=== PATIENT | male | born 1950 ===

== ENCOUNTER 2018-05-16 13:28 | Inpatient (IN) | payer MEDICARE, OTHER ==
[2018-05-16] MEDS ORDERED: Ergocalciferol 50,000 Intl Units Cap PO SCH (17:45)
[2018-05-16] MEDS ORDERED: Patient's Own Med (Dorzolamide 2%/Timolol 0.5% [Cosopt 2%-0.5% Opht] 1 DROP) OU SCH (17:45)
--- NOTE | 2018-05-16 17:51 | CP.PCM.HP ---
<Flo Milan - Last Filed: 05/16/18 17:42> History of Present Illness - History of Present Illness History of Present Illness: 67 y/o M with a PMHx of Aortic Stenosis, HTN, glaucoma and BPH is being admitted to acute rehabilitation department for management and recovery from "S/P Aortic Valve Replacement and PFO Closure" that took place on 05/12/18. Pt is being transferred from [facility]. Pt reports feeling well but c/o of mild chest pain and upper back pain due to handling and transportation issues. Pt explains that chest pain is not as sever as before he had the surgery. Pt denies fever, chills, dizziness, SOB, palpitations, nausea, vomiting or peripheral edema. PMD: Liliana Shaw Medications as listed on EMR -PMHx: Aortic Stenosis, HTN, glaucoma and BPH -PSHx: Aortic Valve Replacement and PFO Closure" on 05/12/18. Appendectomy in 1973. -FHx: Mother with DM2 -SHx: Denies smoking, alcohol or rec drugs. Present on Admission - Present on Admission Any Indicators Present on Admission: No Review of Systems - Constitutional Constitutional: absent: Anorexia, Chills, Fever - EENT Nose/Mouth/Throat: absent: Sore Throat, Neck Pain, Neck Mass - Cardiovascular Cardiovascular: Chest Pain. absent: Diaphoresis - Respiratory Respiratory: absent: Cough, Dyspnea, Hemoptysis - Gastrointestinal Gastrointestinal: absent: Abdominal Pain, Constipation, Cramping, Diarrhea, Nausea, Vomiting - Genitourinary Genitourinary: absent: Dysuria, Flank Pain, Hematuria Past Patient History - Past Medical History & Family History Past Medical History?: Yes - Past Social History Smoking Status: Never Smoked Chewing Tobacco Use: No - CARDIAC Hx Hypertension: Yes - PULMONARY Hx Respiratory Disorders: No - NEUROLOGICAL Hx Neurological Disorder: No - HEENT Hx HEENT Problems: Yes (SEE COMMENT) Other/Comment: bilateral red eyes swollen states due to blood pressure medication changes states vision is unaffected states will follow up with primary jaime for a check up/FOLLOW UP 12/05/[address] GLASER - RENAL Hx Chronic Kidney Disease: No - ENDOCRINE/METABOLIC Hx Endocrine Disorders: No - HEMATOLOGICAL/ONCOLOGICAL Hx Blood Disorders: No - INTEGUMENTARY Hx Dermatological Problems: No - MUSCULOSKELETAL/RHEUMATOLOGICAL Hx Musculoskeletal Disorders: No Hx Falls: No - GASTROINTESTINAL Hx Gastrointestinal Disorders: Yes (SEE COMMENT) Other/Comment: Umbilical hernia surgery in 2017 - GENITOURINARY/GYNECOLOGICAL Hx Genitourinary Disorders: Yes (SEE COMMENT) Other/Comment: BPH - PSYCHIATRIC Hx Substance Use: No - SURGICAL HISTORY Hx Surgeries: Yes (SEE COMMENT) Other/Comment: Peritonitis 1980 complication; pt. states had surgery unspecified and states appendix removal no problems during surgery or waking - ANESTHESIA Hx Anesthesia: Yes Hx Anesthesia Reactions: No Hx Malignant Hyperthermia: No Meds Allergies/Adverse Reactions: Allergies Allergy/AdvReac Type Severity Reaction Status Date / Time No Known Allergies Allergy Verified 05/16/18 16:33 Physical Exam - Constitutional Appears: Well, No Acute Distress - Head Exam Head Exam: ATRAUMATIC, NORMAL INSPECTION - Eye Exam Eye Exam: EOMI, Normal appearance - ENT Exam ENT Exam: Mucous Membranes Moist - Neck Exam Neck exam: Positive for: Full Rom, Normal Inspection. Negative for: Meningismus - Respiratory Exam Respiratory Exam: NORMAL BREATHING PATTERN. absent: Rales, Rhonchi, Wheezes, Respiratory Distress - Cardiovascular Exam Cardiovascular Exam: REGULAR RHYTHM, +S1, +S2 - GI/Abdominal Exam GI & Abdominal Exam: Normal Bowel Sounds, Soft. absent: Diminished Bowel Sounds, Distended, Guarding, Tenderness - Extremities Exam Extremities exam: Positive for: normal inspection. Negative for: calf tenderness, joint swelling, pedal edema - Neurological Exam Neurological exam: Alert, Oriented x3 - Psychiatric Exam Psychiatric exam: Normal Affect, Normal Mood Assessment & Plan - Assessment and Plan (Free Text) Assessment: 67 y/o M with a PMHx of Aortic Stenosis, HTN, glaucoma and BPH is being admitted to acute rehabilitation department for management and recovery from S/P "Aortic Valve Replacement and PFO Closure" that took place on 05/12/18. PLAN: >Aortic Valve Stenosis --Stable, afebrile. --POD #4 --S/P Aortic Valve Replacement and PFO Closure --Oxycodone 5mg for severe pain, Tylenol for moderate and mild pain. --Physiotherapy consult ordered, Dr Jamil. >HTN/BPH --Home meds resumed (Doxazosin) >Glaucoma --Home meds resumed >Diet --Heart Healthy diet >DVT Prophylaxis --SCD's --Lovenox 40mg SC daily Case discussed with Sherrie Dorsey PGY-2 - Date & Time Date: 05/16/18 Time: 18:05 <Sherrie Garcia - Last Filed: 05/19/18 08:24> Results - Vital Signs Recent Vital Signs: Last Vital Signs Temp 98.4 F 05/19/18 07:49 Pulse 79 05/19/18 08:00 Resp 18 05/19/18 07:49 BP 129/64 05/19/18 08:00 Pulse Ox 97 05/19/18 07:49 - Labs Result Diagrams: 05/17/18 08:20 05/17/18 11:00 Labs: Laboratory Results - last 24 hr 05/18/18 09:07 Troponin I 0.2070 H* Attending/Attestation - Attestation I have personally seen and examined this patient.: Yes I have fully participated in the care of the patient.: Yes I have reviewed all pertinent clinical information: Yes Notes (Text): 05/19/18 08:23 agree with findings and plan as above
[2018-05-16] MEDS: Dorzolamide 2% Ophth Soln OU SCH (19:39)
[2018-05-17] MEDS: Pantoprazole 40 mg EC Tab PO SCH (08:38)
[2018-05-17] MEDS: Dorzolamide 2% Ophth Soln OU SCH ×2 (08:39→16:40)
[2018-05-17 09:12] LABS: HEMOGLOBIN 11.6 g/dL (12.0-18.0); MEAN CELL VOLUME 87.1 fl (80.0-94.0); MEAN CORPUSCULAR HEMOGLOBIN 29.6 pg (27.0-31.0); RBC 3.91 Mil/uL (4.40-5.90); RED CELL DISTRIBUTION WIDTH 13.4 % (11.5-14.5); WHITE BLOOD COUNT 6.2 K/uL (4.8-10.8)
[2018-05-17 09:26] LABS: INR 1.2; PROTHROMBIN TIME 13.3 Seconds (9.8-13.1)
[2018-05-17 09:29] LABS: PARTIAL THROMBOPLASTIN TIME 28.6 Seconds (25.6-37.1)
[2018-05-17 09:57] VITALS: BMI 28.2
[2018-05-17 11:42] LABS: ALB/GLOB RATIO 1.1 (1.0-2.1); ALBUMIN 3.1 g/dL (3.5-5.0); ALT/SGPT 41 U/L (21-72); AST/SGOT 31 U/L (17-59); BLOOD UREA NITROGEN 18 mg/dl (9-20); CALCIUM 8.9 mg/dL (8.4-10.2); GFR NON-AFRICAN AMERICAN > 60
[2018-05-17] MEDS: Enoxaparin 40 mg Syringe SC SCH (16:39)
--- NOTE | 2018-05-17 18:09 | CP.PCM.CON ---
History of Present Illness - History of Present Illness History of Present Illness: 67 year old irish patient admitted with general debility and deconditioning, with diagnosis of aortic stenosis, HTN, BPH, glaucoma.PFOwith R to L shunt , admitted for acute rehab Review of Systems - Musculoskeletal Musculoskeletal: Muscle Weakness Past Patient History - Past Medical History & Family History Past Medical History?: Yes - Past Social History Smoking Status: Never Smoked Chewing Tobacco Use: No - CARDIAC Hx Hypertension: Yes - PULMONARY Hx Respiratory Disorders: No - NEUROLOGICAL Hx Neurological Disorder: No - HEENT Hx HEENT Problems: Yes (SEE COMMENT) Other/Comment: bilateral red eyes swollen states due to blood pressure medication changes states vision is unaffected states will follow up with primary jaime for a check up/FOLLOW UP 12/05/[address] GLASER - RENAL Hx Chronic Kidney Disease: No - ENDOCRINE/METABOLIC Hx Endocrine Disorders: No - HEMATOLOGICAL/ONCOLOGICAL Hx Blood Disorders: No - INTEGUMENTARY Hx Dermatological Problems: No - MUSCULOSKELETAL/RHEUMATOLOGICAL Hx Musculoskeletal Disorders: No Hx Falls: No - GASTROINTESTINAL Hx Gastrointestinal Disorders: Yes (SEE COMMENT) Other/Comment: Umbilical hernia surgery in 2017 - GENITOURINARY/GYNECOLOGICAL Hx Genitourinary Disorders: Yes (SEE COMMENT) Other/Comment: BPH - PSYCHIATRIC Hx Substance Use: No - SURGICAL HISTORY Hx Surgeries: Yes (SEE COMMENT) Other/Comment: Peritonitis 1980 complication; pt. states had surgery unspecified and states appendix removal no problems during surgery or waking - ANESTHESIA Hx Anesthesia: Yes Hx Anesthesia Reactions: No Hx Malignant Hyperthermia: No Meds Allergies/Adverse Reactions: Allergies Allergy/AdvReac Type Severity Reaction Status Date / Time No Known Allergies Allergy Verified 05/16/18 16:33 - Medications Medications: Current Medications Acetaminophen (Tylenol 325mg Tab) 650 mg PO Q6 PRN PRN Reason: Pain, moderate (4-7) Last Admin: 05/17/18 17:18 Dose: 650 mg Acetaminophen (Tylenol 325mg Tab) 325 mg PO Q6 PRN PRN Reason: Pain, Mild (1-3) Acetaminophen (Tylenol 325mg Tab) 650 mg PO Q6 PRN PRN Reason: Fever >100.4 F Aspirin (Ecotrin) 81 mg PO DAILY [facility] Last Admin: 05/17/18 08:38 Dose: 81 mg Docusate Sodium (Colace) 100 mg PO BID [facility] Last Admin: 05/17/18 16:38 Dose: 100 mg Dorzolamide HCl (Trusopt) 1 drop OU BID [facility] Last Admin: 05/17/18 16:40 Dose: 1 drop Doxazosin Mesylate (Cardura) 8 mg PO HS [facility] Last Admin: 05/16/18 21:31 Dose: Not Given Enoxaparin Sodium (Lovenox) 40 mg SC DAILY [facility]; Protocol Last Admin: 05/17/18 16:39 Dose: 40 mg Ergocalciferol (Drisdol 50,000 Intl Units Cap) 1 cap PO QWK [facility] Metoprolol Tartrate (Lopressor) 12.5 mg PO Q12 [facility] Last Admin: 05/17/18 08:38 Dose: 12.5 mg Oxycodone HCl (Oxycodone Immediate Release Tab) 5 mg PO Q4 PRN PRN Reason: Pain, severe (8-10) Pantoprazole Sodium (Protonix Ec Tab) 40 mg PO DAILY [facility] Last Admin: 05/17/18 08:38 Dose: 40 mg Timolol Maleate (Timoptic 0.5% Oph Soln) 1 drop OU BID [facility] Last Admin: 05/17/18 16:40 Dose: 1 drop Physical Exam - Constitutional Appears: Well - Head Exam Head Exam: ATRAUMATIC, NORMAL INSPECTION, NORMOCEPHALIC - Eye Exam Eye Exam: EOMI, Normal appearance Pupil Exam: NORMAL ACCOMODATION, PERRL - ENT Exam ENT Exam: Mucous Membranes Moist, Normal Exam - Neck Exam Neck exam: Positive for: Normal Inspection - Respiratory Exam Respiratory Exam: NORMAL BREATHING PATTERN - Cardiovascular Exam Cardiovascular Exam: REGULAR RHYTHM - GI/Abdominal Exam GI & Abdominal Exam: Normal Bowel Sounds - Rectal Exam Rectal Exam: NORMAL INSPECTION - Exam External exam: NORMAL EXTERNAL EXAM - Extremities Exam Extremities exam: Positive for: normal inspection Additional comments: weakness of the extremities - Back Exam Back exam: NORMAL INSPECTION - Psychiatric Exam Psychiatric exam: Normal Mood - Skin Skin Exam: Dry, Normal Color Results - Vital Signs Recent Vital Signs: Last Vital Signs Temp 98.2 F 05/17/18 09:38 Pulse 78 05/17/18 09:38 Resp 19 05/17/18 09:38 BP 131/77 05/17/18 09:38 Pulse Ox 96 05/17/18 09:38 - Labs Result Diagrams: 05/17/18 08:20 05/17/18 11:00 Labs: Laboratory Results - last 24 hr 05/17/18 05/17/18 05/17/18 08:20 08:20 11:00 WBC 6.2 RBC 3.91 L Hgb 11.6 L Hct 34.1 L MCV 87.1 MCH 29.6 MCHC 34.0 RDW 13.4 Plt Count 168 PT 13.3 H INR 1.2 APTT 28.6 Sodium 136 Potassium 4.1 Chloride 97 L Carbon Dioxide 27 Anion Gap 16 BUN 18 Creatinine 1.1 Est GFR ( Amer) > 60 Est GFR (Non-Af Amer) > 60 Random Glucose 168 H Calcium 8.9 Total Bilirubin 1.0 AST 31 ALT 41 Alkaline Phosphatase 160 H D Total Protein 6.1 L Albumin 3.1 L Globulin 3.0 Albumin/Globulin Ratio 1.1 Assessment & Plan (1) FARIDA (acute kidney injury) Status: Acute (2) Dehydration Status: Acute (3) HTN (hypertension) Status: Acute Comment: General debility - Assessment and Plan (Free Text) Plan: Aortic stenosis, plan for physical, occupational therapy and rec therapy for range of motion, strengthening, transfers and gait training. To write for overall plan of care
--- NOTE | 2018-05-17 18:14 | PCM.OPOC ---
Physiatry Overall Plan of Care - Overall Plan of Care Estimated Length of Stay in Weeks: 2 Rehab Impairment: Mobility, Gait, Balance Etiologic Diagnosis: Other Rehab/Medical Prognosis: Fair - Anticipated Interventions Physical Therapy:: Yes Occupational Therapy:: Yes Recreational Therapy:: Yes - Therapy Goals Bed Mobility: Independent Ambulation: Supervision Functional Positional Changes:: Independent - Functional Outcomes Functional Outcomes: fair - Discharge Plan Identification of Barriers to Discharge: Cognition Discharge Destination: Home
--- NOTE | 2018-05-18 02:46 | CP.PCM.PCO ---
Assessment & Plan - Assessment and Plan (Free Text) Assessment: Pt is a 89 y/o male with hx of recent Aortic Valve replacement. Received call by RN stating patient was complaining of chest wall and left arm pain associated with numbness and tingling of left fingers. Approached pt at bedside. Pt was hemodynamically stable, appeared comfortable. He states that ever since the operation, he has had chest wall, left shoulder pain and hand numbness that is fully resolved with Tylenol. EKG completed - no ischemic changes on my read. Troponin 0.22 (Was 2.23 on 05/15). Pt re-assessed after receiving Tylenol, found sleeping comfortable. Serial troponins ordered to trend levels. Discussed case with Dr. Gill.
[2018-05-18] MEDS: Pantoprazole 40 mg EC Tab PO SCH (08:13)
[2018-05-18] MEDS: Enoxaparin 40 mg Syringe SC SCH (08:14)
[2018-05-18] MEDS: Dorzolamide 2% Ophth Soln OU SCH ×2 (08:19→17:00)
--- NOTE | 2018-05-18 09:52 | CP.PCM.PN ---
Subjective - Date & Time of Evaluation Date of Evaluation: 05/18/18 Time of Evaluation: 09:30 - Subjective Subjective: Patient seen and examined bedside . Still complains of left arm numbness since post op day 1 as well as chest discomfort especially around surgical scar Hemodynamically stable, afebrile. Participating with PT No acute issues overnight Objective - Vital Signs/Intake and Output Vital Signs (last 24 hours): Temp Pulse Resp BP Pulse Ox 98.2 F 80 20 130/80 98 05/18/18 07:39 05/18/18 08:12 05/18/18 07:39 05/18/18 08:12 05/18/18 07:39 - Medications Medications: Current Medications Acetaminophen (Tylenol 325mg Tab) 650 mg PO Q6 PRN PRN Reason: Pain, moderate (4-7) Last Admin: 05/18/18 06:00 Dose: 650 mg Acetaminophen (Tylenol 325mg Tab) 325 mg PO Q6 PRN PRN Reason: Pain, Mild (1-3) Acetaminophen (Tylenol 325mg Tab) 650 mg PO Q6 PRN PRN Reason: Fever >100.4 F Aspirin (Ecotrin) 81 mg PO DAILY [facility] Last Admin: 05/18/18 08:12 Dose: 81 mg Docusate Sodium (Colace) 100 mg PO BID [facility] Last Admin: 05/18/18 08:11 Dose: 100 mg Dorzolamide HCl (Trusopt) 1 drop OU BID [facility] Last Admin: 05/18/18 08:19 Dose: 1 drop Doxazosin Mesylate (Cardura) 8 mg PO HS [facility] Last Admin: 05/17/18 22:05 Dose: 8 mg Enoxaparin Sodium (Lovenox) 40 mg SC DAILY [facility]; Protocol Last Admin: 05/18/18 08:14 Dose: 40 mg Ergocalciferol (Drisdol 50,000 Intl Units Cap) 1 cap PO QWK [facility] Metoprolol Tartrate (Lopressor) 12.5 mg PO Q12 [facility] Last Admin: 05/18/18 08:12 Dose: 12.5 mg Oxycodone HCl (Oxycodone Immediate Release Tab) 5 mg PO Q4 PRN PRN Reason: Pain, severe (8-10) Pantoprazole Sodium (Protonix Ec Tab) 40 mg PO DAILY [facility] Last Admin: 02/18/19 08:13 Dose: 40 mg Timolol Maleate (Timoptic 0.5% Ophth Soln) 1 drop OU BID [facility] Last Admin: 05/18/18 08:14 Dose: 1 drop - Labs Labs: 05/17/18 08:20 05/17/18 11:00 PT 13.3 Seconds (9.8-13.1) H 05/17/18 08:20 INR 1.2 05/17/18 08:20 APTT 28.6 Seconds (25.6-37.1) 05/17/18 08:20 - Constitutional Appears: Non-toxic, No Acute Distress - Head Exam Head Exam: ATRAUMATIC, NORMAL INSPECTION, NORMOCEPHALIC - Eye Exam Eye Exam: EOMI, Normal appearance Pupil Exam: NORMAL ACCOMODATION - ENT Exam ENT Exam: Mucous Membranes Moist, Normal Exam - Respiratory Exam Respiratory Exam: Clear to Ausculation Bilateral, NORMAL BREATHING PATTERN. absent: Rales, Rhonchi, Wheezes - Cardiovascular Exam Cardiovascular Exam: REGULAR RHYTHM, RRR, +S1, +S2. absent: JVD - GI/Abdominal Exam GI & Abdominal Exam: Soft, Normal Bowel Sounds. absent: Distended, Guarding, Tenderness, Rebound - Rectal Exam Rectal Exam: Deferred - Extremities Exam Extremities Exam: Full ROM, Normal Capillary Refill, Normal Inspection. absent: Pedal Edema - Back Exam Back Exam: NORMAL INSPECTION - Neurological Exam Neurological Exam: Alert, Awake, CN II-XII Intact, Oriented x3 - Psychiatric Exam Psychiatric exam: Normal Affect - Skin Skin Exam: Dry, Warm Additional comments: mid chest surgical scar healing well Assessment and Plan - Assessment and Plan (Free Text) Assessment: 67 y/o M with a PMH of Aortic Stenosis, HTN, glaucoma and BPH underwent aortic valve replacement and PFO closure at [facility] 05/12/18 and now transferred to acute rehab for PT. At present doing well , hemodynamically stable, afebrile. Stil with numbness to LUE 1.s/p Aortic Valve replacement and PFO closure Stable, afebrile. Continue PT , pain management surgical incision healing well with LUE numbness since surgery 2.HTN controlled on Metoprolol 3.BPH on Doxazosin 4.Glaucoma on eye drops 5.DVT Prophylaxis SCD's Lovenox 40mg SC daily
--- NOTE | 2018-05-18 16:10 | CARD ---
APPROVED REPORT Date of service: 05/17/2018 EKG Measurement Heart [id number] <Conclusion> Normal sinus rhythm Nonspecific T wave abn Normal Electrocardiogram
[2018-05-19] MEDS: Pantoprazole 40 mg EC Tab PO SCH (08:00)
[2018-05-19] MEDS: Dorzolamide 2% Ophth Soln OU SCH ×2 (08:01→16:04)
[2018-05-19] MEDS: Enoxaparin 40 mg Syringe SC SCH (08:01)
--- NOTE | 2018-05-19 15:36 | CP.PCM.PN ---
Subjective - Date & Time of Evaluation Date of Evaluation: 05/19/18 Time of Evaluation: 13:10 - Subjective Subjective: patient complains of occasional left hand numbness Objective - Vital Signs/Intake and Output Vital Signs (last 24 hours): Temp Pulse Resp BP Pulse Ox 98.4 F 79 18 129/64 97 05/19/18 08:12 05/19/18 08:12 05/19/18 08:12 05/19/18 08:12 05/19/18 07:49 - Medications Medications: Current Medications Acetaminophen (Tylenol 325mg Tab) 650 mg PO Q6 PRN PRN Reason: Pain, moderate (4-7) Last Admin: 05/19/18 07:12 Dose: 650 mg Acetaminophen (Tylenol 325mg Tab) 325 mg PO Q6 PRN PRN Reason: Pain, Mild (1-3) Acetaminophen (Tylenol 325mg Tab) 650 mg PO Q6 PRN PRN Reason: Fever >100.4 F Aspirin (Ecotrin) 81 mg PO DAILY [facility] Last Admin: 05/19/18 08:00 Dose: 81 mg Docusate Sodium (Colace) 100 mg PO BID [facility] Last Admin: 05/19/18 08:00 Dose: 100 mg Dorzolamide HCl (Trusopt) 1 drop OU BID [facility] Last Admin: 05/19/18 08:01 Dose: 1 drop Doxazosin Mesylate (Cardura) 8 mg PO HS [facility] Last Admin: 05/18/18 22:06 Dose: 8 mg Enoxaparin Sodium (Lovenox) 40 mg SC DAILY [facility]; Protocol Last Admin: 05/19/18 08:01 Dose: 40 mg Ergocalciferol (Drisdol 50,000 Intl Units Cap) 1 cap PO QWK [facility] Metoprolol Tartrate (Lopressor) 12.5 mg PO Q12 [facility] Last Admin: 05/19/18 08:00 Dose: 12.5 mg Oxycodone HCl (Oxycodone Immediate Release Tab) 5 mg PO Q4 PRN PRN Reason: Pain, severe (8-10) Pantoprazole Sodium (Protonix Ec Tab) 40 mg PO DAILY [facility] Last Admin: 05/19/18 08:00 Dose: 40 mg Timolol Maleate (Timoptic 0.5% Ophth Soln) 1 drop OU BID [facility] Last Admin: 05/19/18 08:01 Dose: 1 drop - Labs Labs: 05/17/18 08:20 05/17/18 11:00 PT 13.3 Seconds (9.8-13.1) H 05/17/18 08:20 INR 1.2 05/17/18 08:20 APTT 28.6 Seconds (25.6-37.1) 05/17/18 08:20 - Constitutional Appears: Well - Head Exam Head Exam: ATRAUMATIC, NORMAL INSPECTION, NORMOCEPHALIC - Eye Exam Eye Exam: EOMI, Normal appearance, PERRL Pupil Exam: NORMAL ACCOMODATION - ENT Exam ENT Exam: Mucous Membranes Moist, Normal Exam - Neck Exam Neck Exam: Full ROM, Normal Inspection - Respiratory Exam Respiratory Exam: Clear to Ausculation Bilateral, NORMAL BREATHING PATTERN - Cardiovascular Exam Cardiovascular Exam: REGULAR RHYTHM - GI/Abdominal Exam GI & Abdominal Exam: Soft, Normal Bowel Sounds - Rectal Exam Rectal Exam: NORMAL INSPECTION - Exam External exam: NORMAL EXTERNAL EXAM - Extremities Exam Extremities Exam: Full ROM, Normal Capillary Refill, Normal Inspection - Back Exam Back Exam: NORMAL INSPECTION - Neurological Exam Neurological Exam: Alert, Awake Neuro motor strength exam: Left Upper Extremity: 3, Right Upper Extremity: 3, Left Lower Extremity: 3, Right Lower Extremity: 3 - Psychiatric Exam Psychiatric exam: Normal Affect, Normal Mood - Skin Skin Exam: Dry, Intact Assessment and Plan (1) FARIDA (acute kidney injury) Status: Acute (2) Dehydration Status: Acute (3) HTN (hypertension) Status: Acute - Assessment and Plan (Free Text) Plan: CVa plan for physical, occupational, rec therapy neurology consult for left hand numbness
--- NOTE | 2018-05-19 15:42 | CP.PCM.PN ---
Subjective - Date & Time of Evaluation Date of Evaluation: 05/17/18 Time of Evaluation: 12:00 - Subjective Subjective: no acute complaints at present Objective - Vital Signs/Intake and Output Vital Signs (last 24 hours): Temp Pulse Resp BP Pulse Ox 98.4 F 79 18 129/64 97 05/19/18 08:12 05/19/18 08:12 05/19/18 08:12 05/19/18 08:12 05/19/18 07:49 - Medications Medications: Current Medications Acetaminophen (Tylenol 325mg Tab) 650 mg PO Q6 PRN PRN Reason: Pain, moderate (4-7) Last Admin: 05/19/18 07:12 Dose: 650 mg Acetaminophen (Tylenol 325mg Tab) 325 mg PO Q6 PRN PRN Reason: Pain, Mild (1-3) Acetaminophen (Tylenol 325mg Tab) 650 mg PO Q6 PRN PRN Reason: Fever >100.4 F Aspirin (Ecotrin) 81 mg PO DAILY [facility] Last Admin: 05/19/18 08:00 Dose: 81 mg Docusate Sodium (Colace) 100 mg PO BID [facility] Last Admin: 05/19/18 08:00 Dose: 100 mg Dorzolamide HCl (Trusopt) 1 drop OU BID [facility] Last Admin: 05/19/18 08:01 Dose: 1 drop Doxazosin Mesylate (Cardura) 8 mg PO HS [facility] Last Admin: 05/18/18 22:06 Dose: 8 mg Enoxaparin Sodium (Lovenox) 40 mg SC DAILY [facility]; Protocol Last Admin: 05/19/18 08:01 Dose: 40 mg Ergocalciferol (Drisdol 50,000 Intl Units Cap) 1 cap PO QWK [facility] Metoprolol Tartrate (Lopressor) 12.5 mg PO Q12 [facility] Last Admin: 05/19/18 08:00 Dose: 12.5 mg Oxycodone HCl (Oxycodone Immediate Release Tab) 5 mg PO Q4 PRN PRN Reason: Pain, severe (8-10) Pantoprazole Sodium (Protonix Ec Tab) 40 mg PO DAILY [facility] Last Admin: 05/19/18 08:00 Dose: 40 mg Timolol Maleate (Timoptic 0.5% Ophth Soln) 1 drop OU BID [facility] Last Admin: 05/19/18 08:01 Dose: 1 drop - Labs Labs: 02/17/19 08:20 05/17/18 11:00 PT 13.3 Seconds (9.8-13.1) H 05/17/18 08:20 INR 1.2 05/17/18 08:20 APTT 28.6 Seconds (25.6-37.1) 05/17/18 08:20 - Constitutional Appears: Well - Head Exam Head Exam: ATRAUMATIC, NORMAL INSPECTION, NORMOCEPHALIC - Eye Exam Eye Exam: EOMI, Normal appearance, PERRL Pupil Exam: NORMAL ACCOMODATION - ENT Exam ENT Exam: Mucous Membranes Moist, Normal Exam - Neck Exam Neck Exam: Full ROM, Normal Inspection - Respiratory Exam Respiratory Exam: Clear to Ausculation Bilateral, NORMAL BREATHING PATTERN - Cardiovascular Exam Cardiovascular Exam: REGULAR RHYTHM - GI/Abdominal Exam GI & Abdominal Exam: Soft, Normal Bowel Sounds - Rectal Exam Rectal Exam: NORMAL INSPECTION - Exam External exam: NORMAL EXTERNAL EXAM - Extremities Exam Extremities Exam: Full ROM, Normal Capillary Refill, Normal Inspection - Back Exam Back Exam: NORMAL INSPECTION - Neurological Exam Neurological Exam: Alert, Awake Neuro motor strength exam: Left Upper Extremity: 3, Right Upper Extremity: 3, Left Lower Extremity: 3, Right Lower Extremity: 3 - Psychiatric Exam Psychiatric exam: Normal Affect, Normal Mood - Skin Skin Exam: Dry, Intact Assessment and Plan (1) FARIDA (acute kidney injury) Status: Acute (2) Dehydration Status: Acute (3) HTN (hypertension) Status: Acute - Assessment and Plan (Free Text) Assessment: CVa plan for range of motion, strengthening transfers and gait training
[2018-05-20] MEDS: oxyCODONE 5 mg Immediate Release Tab PO PRN ×3 (02:29→14:51)
[2018-05-20 07:13] LABS: MEAN CELL VOLUME 86.9 fl (80.0-94.0); MEAN CORPUSCULAR HGB CONC 33.4 g/dL (33.0-37.0); RBC 3.78 Mil/uL (4.40-5.90); RED CELL DISTRIBUTION WIDTH 13.4 % (11.5-14.5)
[2018-05-20 07:27] LABS: BLOOD UREA NITROGEN 17 mg/dl (9-20); CALCIUM 8.9 mg/dL (8.4-10.2); GFR NON-AFRICAN AMERICAN > 60
[2018-05-20] MEDS: Enoxaparin 40 mg Syringe SC SCH (08:09)
[2018-05-20] MEDS: Dorzolamide 2% Ophth Soln OU SCH ×2 (08:11→16:42)
[2018-05-20] MEDS: Pantoprazole 40 mg EC Tab PO SCH (08:11)
[2018-05-20] MEDS ORDERED: Ergocalciferol 50,000 Intl Units Cap PO SCH (09:00)
--- NOTE | 2018-05-20 11:36 | PCM.PSYTMC ---
Acute Rehab Team Conference - - Vital Signs: Vital Signs (Last 8 Hours): Vital Signs 05/20/18 05/20/18 05/20/18 07:22 08:10 08:48 Temperature 98.2 F 98.2 F Pulse Rate 79 79 79 Respiratory 18 18 Rate Blood Pressure 123/61 123/61 123/61 O2 Sat by Pulse 98 Oximetry Pain: 0 - Precautions: Precautions: Fall Prevention, Cardiac/Pulmonary - Medications/Other Issues: Comment: Lovenox 40mg, Protonix - Consults: Comment: post D/C. May at 10:00 am - Skin: Incision Site: mid incision to chest,potato loader post drain sites Incision: Sutures Intact Incision Line Treatment: post drain sites with sutures, with some scabs, LOPEZ laterally to abdomen - Toileting: Toileting: Supervision - Bladder Management: Bladder Pattern: Normal Voiding Method: Toilet Bladder Management: Supervision - Transfers: Transfers: Supervision - ADL's: ADL's: Supervision - Pain Management: Other Intervention:: with PRN medications,effective - Patient/Family Teaching: Other Intervention:: cardiac precaution, diet, fall precautions - Goals/Time Frame: Comment: " want to go back working with less to no pain" - Provider: Registered Nurse:: Fatimah Hull Physical Therapy - Bed Mobility Bed Mobility: Supervision, Verbal Cues - Transfers Wheelchair to Mat: Supervision, Verbal Cues Sit to Stand: Supervision, Verbal Cues - Ambulation Level of Assistance: Supervision, Verbal Cues Distance (ft.): 250 Orthoses: n/a Comment: 250 feet with SPC (RUE) with supervision with reciprocal pattern. - VCs for upright visual gaze as patient has tendency for downward gaze. - repeated trials with emphasis on slowly increasing speed as well as increasing tolerance to activity. [ End ] - Stair Negotiation Stairs: Level of Assistance: Not Tested - Standing Balance Static Stand: Supervision - Pain Pain (assessed during therapy session): 4 Comment: -anterior chest pain, L shoulder (posteriorly biased). -patient's primary complaint is of L hand numbness which he reports his new and was not present prior to surgery - Insight/Carryover Insight/Carryover: Good - Patient/Family Education Comment: sternal precautions, safety, mobility, use of DME, endurance, breathing patterns, functional training - Assessment/Plan Assessment: Patient continues to present with flat affect. Patient remains concerned regarding L hand numbness and altered sensation which he reports does not change with pain medication and was not present prior to procedure; RN Dayanna notified of patient's complaints. Patient continues to make good progress in therapy with fair to good carry-over with sternal precautions. Patient ambulates with SPC with rest breaks prn. Pt will benefit from skilled PT addressing endurance, safety, mobility, and continued education. - Goals Timeframe: 7 days Goals: -perform bed/mat mobility with mod I with adherence to sternal precautions. -perform transfers with SPC with DS with adherence to sternal precautions. -ambulate 500 feet with SPC with DS. -negotiate 1 flight of steps with single rail and SPC with CS - Provider Physical Therapist:: Desire Bunch License Number:: [id number] Occupational Therapy - Arousal/Attention/Orientation Level of Consciousness: Awake, Alert Patient Orientation: Person, Place, Time - ADL/IADL Self Feeding: Independent, Set-up Help Grooming: Independent, Set-up Help Bathing-Upper Ext: Supervision Bathing-Lower Ext: Supervision Dressing-Upper Ext: Independent Dressing-Lower Ext: Supervision, Verbal Cues, Contact Guard Comment: verbal cues to maintain sternal precautions - Sitting Balance Static Sitting: Independent without upper extremity support Dynamic Sitting: Reaches across midline, Reaches out of base of support - Transfers Wheelchair to Bed Transfers: Supervision, Verbal Cues Toilet Transfers: Supervision, Verbal Cues Comment: patient has walk in shower; able to complete simulated shower transfer with supervision - Wheelchair Management Level of Assistance: Supervision, Verbal Cues Distance (ft.): 150 - Upper Extremity Status Right Upper Extremity Comment: AROM WFLs Left Upper Extremity Comment: AROM WFLs. c/o intermittent L hand numbness. c/o pain from L scapula radiaitng down to hand. sensation is intact. stereognosis is intact - Pain Pain (assessed during therapy session): 5 Comment: pain at incision site - Insight/Carryover Insight/Carryover: Good - Patient/Family Education Comment: STERNAL PRECAUTIONS/CARDIAC PREACAUTIONS, ENERGRY CONSERVATION/FALL PREVENTION, THERAPY GOAL, PLAN OF CARE, THERAPY SCHEDULE - Assessment/Plan Assessment: patient is a 67 yo male presenting to [facility] s/p s/p AVR and PFO closure. PRECAUTIONS:FALLS/SAFETY,STERNAL PRECAUTIONS, CARDIAC PRECAUTIONS, INCISION SITE CARE. Patient presents with pain at surgical site, impaired dynamic standing balance , impaired activity tolerance, generazlzied weakness, impaired knowledge of adaptive, compensatory, techs and impaired knowledge of sternal/cardiac precautions. patient with c/o L hand numbnes; made aware, neuro consult ordered. Due to these aforementioend defecits skilled OT services are highly warranted 5-6x/week to maximize pt's functional I prior to D/C. - Goals Timeframe: 2 weeks Comment: MOD I TRANSFERS. MOD I LIGHT IADLS/HOMEMAKING. MOD I TOILETING. MOD I UB/LB ADLS. MOD I TOILETING - Provider Occupational Therapist:: Jemima Johnson License Number: [id number] Nutrition - Current Diet Current Diet/Supplement/Feedings: Heart healthy decaf - Appetite Percent Meal Consumed: 75-100% - Assessment/Goals/Time Frame Assessments/Goals/Time Frame: Pt at high nutritional risk. goals: 1. Pt to consume 75-100% of meals. 2. Blood glucoses to be between 70-180 mg/dl. Follow-up due on 05/23/2018 - Provider Provider: Humaira Solis Case Management - Psychosocial Assessment Support Systems: Alicja Chairez (spouse) - [phone] Psychological Interventions/Needs: Patient is AAO x3 and able to verbalize needs. Discharge Concerns: Patient lives with his in a senior citizen building in a fourth floor apartment and has elevator access. feels that their toilet is very low, unlike that in his room at rehab, and would require pt to exert a lot of force to get up from. Patient/Family Meeting: CM met with patient and rehab team. Intervention/Goal/Outcome: 1. Goal: Intermittent Supervision 2. Plan: home with VNS 3. DME needs 4. f/u appts 5. emotional support - Discharge Plan Discharge Plan: Home with services Home Services: [facility]? - Provider Provider: Shirley Montoya License Number: [id number] Rehabilitation Plan - Treatment Plan Treatment Plan: Physical Therapy, Occupational Therapy, Dietary, Patient/Family Education - Recommendation Recommendation: Physical Therapy, Occupational Therapy, Dietary, Patient/Family Education - Discharge Plan Discharge to: Home (Dc 26)
--- NOTE | 2018-05-20 11:44 | CP.PCM.PN ---
Subjective - Date & Time of Evaluation Date of Evaluation: 05/20/18 Time of Evaluation: 11:44 - Subjective Subjective: DONG WELL NO COMPLAINTS PARTICIPATING WELL WITH PT HD STABLE NAD Objective - Vital Signs/Intake and Output Vital Signs (last 24 hours): Temp Pulse Resp BP Pulse Ox 98.2 F 79 18 123/61 98 05/20/18 08:48 05/20/18 08:48 05/20/18 08:48 05/20/18 08:48 05/20/18 07:22 Vitals Reviewed GEN: WDWN, alert, cooperative HEENT: NCAT, PERRL, EOMI HEART: RRR, +S1S2, NO MRG LUNG: CTAB, NO WRR ABD: soft, NT, ND, No HSM, No masses EXT: normal pedal pulses NEURO: awake, alert SKIN: warm, dry PSYCH: normal mood, normal affect - Medications Medications: Current Medications Acetaminophen (Tylenol 325mg Tab) 650 mg PO Q6 PRN PRN Reason: Pain, moderate (4-7) Last Admin: 05/19/18 21:15 Dose: 650 mg Acetaminophen (Tylenol 325mg Tab) 325 mg PO Q6 PRN PRN Reason: Pain, Mild (1-3) Acetaminophen (Tylenol 325mg Tab) 650 mg PO Q6 PRN PRN Reason: Fever >100.4 F Aspirin (Ecotrin) 81 mg PO DAILY [facility] Last Admin: 05/20/18 08:09 Dose: 81 mg Docusate Sodium (Colace) 100 mg PO BID [facility] Last Admin: 05/20/18 08:10 Dose: 100 mg Dorzolamide HCl (Trusopt) 1 drop OU BID [facility]PL[facility] BY [facility] Last Admin: 05/20/18 08:11 Dose: 1 drop Doxazosin Mesylate (Cardura) 8 mg PO HS [facility]PLACED BY [facility] Last Admin: 05/19/18 21:06 Dose: 8 mg Enoxaparin Sodium (Lovenox) 40 mg SC DAILY [facility]PL[facility] BY [facility]; Protocol Last Admin: 05/20/18 08:09 Dose: 40 mg Ergocalciferol (Drisdol 50,000 Intl Units Cap) 1 cap PO Q7D REPLACED BY [facility] Last Admin: 05/20/18 08:08 Dose: 1 cap Metoprolol Tartrate (Lopressor) 12.5 mg PO Q12 [facility]PLAC[facility] BY [facility] Last Admin: 05/20/18 08:10 Dose: 12.5 mg Oxycodone HCl (Oxycodone Immediate Release Tab) 5 mg PO Q4 PRN PRN Reason: Pain, severe (8-10) Last Admin: 05/20/18 10:01 Dose: 5 mg Pantoprazole Sodium (Protonix Ec Tab) 40 mg PO DAILY [facility]PL[facility] Last Admin: 05/20/18 08:11 Dose: 40 mg Timolol Maleate (Timoptic 0.5% Ophth Soln) 1 drop OU BID [facility]PLACED BY [facility] Last Admin: 05/20/18 08:09 Dose: 1 drop - Labs Labs: 05/20/18 07:07 05/20/18 07:07 PT 13.3 Seconds (9.8-13.1) H 05/17/18 08:20 INR 1.2 05/17/18 08:20 APTT 28.6 Seconds (25.6-37.1) 05/17/18 08:20 Assessment and Plan - Assessment and Plan (Free Text) Plan: 67 y/o M with a PMH of Aortic Stenosis, HTN, glaucoma and BPH underwent aortic valve replacement and PFO closure at [facility] 05/12/18 and now transferred to acute rehab for PT. 1.s/p Aortic Valve replacement and PFO closure Stable, afebrile. Continue PT , pain management surgical incision healing well with LUE numbness since surgery 2.HTN controlled on Metoprolol 3.BPH on Doxazosin 4.Glaucoma on eye drops 5.DVT Prophylaxis SCD's Lovenox 40mg SC daily
--- NOTE | 2018-05-20 16:37 | CP.PCM.PN ---
Subjective - Date & Time of Evaluation Date of Evaluation: 05/20/18 Time of Evaluation: 12:00 - Subjective Subjective: patient still with occasional complaints of left hand tingling at times, no other complaints Objective - Vital Signs/Intake and Output Vital Signs (last 24 hours): Temp Pulse Resp BP Pulse Ox 98.2 F 79 18 123/61 98 05/20/18 08:48 05/20/18 08:48 05/20/18 08:48 05/20/18 08:48 05/20/18 07:22 - Medications Medications: Current Medications Acetaminophen (Tylenol 325mg Tab) 650 mg PO Q6 PRN PRN Reason: Pain, moderate (4-7) Last Admin: 05/19/18 21:15 Dose: 650 mg Acetaminophen (Tylenol 325mg Tab) 325 mg PO Q6 PRN PRN Reason: Pain, Mild (1-3) Acetaminophen (Tylenol 325mg Tab) 650 mg PO Q6 PRN PRN Reason: Fever >100.4 F Aspirin (Ecotrin) 81 mg PO DAILY [facility] Last Admin: 05/20/18 08:09 Dose: 81 mg Docusate Sodium (Colace) 100 mg PO BID [facility] Last Admin: 05/20/18 08:10 Dose: 100 mg Dorzolamide HCl (Trusopt) 1 drop OU BID [facility] Last Admin: 05/20/18 08:11 Dose: 1 drop Doxazosin Mesylate (Cardura) 8 mg PO HS [facility] Last Admin: 05/19/18 21:06 Dose: 8 mg Enoxaparin Sodium (Lovenox) 40 mg SC DAILY [facility]; Protocol Last Admin: 05/20/18 08:09 Dose: 40 mg Ergocalciferol (Drisdol 50,000 Intl Units Cap) 1 cap PO Q7D [facility] Last Admin: 05/20/18 08:08 Dose: 1 cap Metoprolol Tartrate (Lopressor) 12.5 mg PO Q12 [facility] Last Admin: 05/20/18 08:10 Dose: 12.5 mg Oxycodone HCl (Oxycodone Immediate Release Tab) 5 mg PO Q4 PRN PRN Reason: Pain, severe (8-10) Last Admin: 05/20/18 14:51 Dose: 5 mg Pantoprazole Sodium (Protonix Ec Tab) 40 mg PO DAILY [facility] Last Admin: 05/20/18 08:11 Dose: 40 mg Timolol Maleate (Timoptic 0.5% Ophth Soln) 1 drop OU BID [facility] Last Admin: 05/20/18 08:09 Dose: 1 drop - Labs Labs: 05/20/18 07:07 05/20/18 07:07 PT 13.3 Seconds (9.8-13.1) H 05/17/18 08:20 INR 1.2 05/17/18 08:20 APTT 28.6 Seconds (25.6-37.1) 05/17/18 08:20 - Constitutional Appears: Well - Head Exam Head Exam: ATRAUMATIC, NORMAL INSPECTION, NORMOCEPHALIC - Eye Exam Eye Exam: EOMI, Normal appearance, PERRL Pupil Exam: NORMAL ACCOMODATION, PERRL - ENT Exam ENT Exam: Mucous Membranes Moist, Normal Exam - Neck Exam Neck Exam: Full ROM, Normal Inspection - Respiratory Exam Respiratory Exam: Clear to Ausculation Bilateral, NORMAL BREATHING PATTERN - Cardiovascular Exam Cardiovascular Exam: REGULAR RHYTHM - GI/Abdominal Exam GI & Abdominal Exam: Soft, Normal Bowel Sounds - Rectal Exam Rectal Exam: NORMAL INSPECTION - Exam External exam: NORMAL EXTERNAL EXAM - Extremities Exam Extremities Exam: Full ROM, Normal Capillary Refill, Normal Inspection - Back Exam Back Exam: NORMAL INSPECTION - Neurological Exam Neurological Exam: Alert, Awake Neuro motor strength exam: Left Upper Extremity: 3, Right Upper Extremity: 3, Left Lower Extremity: 3, Right Lower Extremity: 3 - Psychiatric Exam Psychiatric exam: Normal Affect, Normal Mood - Skin Skin Exam: Dry, Normal Color, Warm Assessment and Plan (1) FARIDA (acute kidney injury) Status: Acute (2) Dehydration Status: Acute (3) HTN (hypertension) Status: Acute - Assessment and Plan (Free Text) Assessment: aortic stenosis, status post surgery, deconditioning, Plan for physical, occupational therapy Had team conference Dc date for 05/26 present and agreeable. Trial of left hand splint?, neurology consult pending
[2018-05-21] MEDS: oxyCODONE 5 mg Immediate Release Tab PO PRN (08:11)
[2018-05-21] MEDS: Enoxaparin 40 mg Syringe SC SCH (08:53)
[2018-05-21] MEDS: Pantoprazole 40 mg EC Tab PO SCH (08:54)
[2018-05-21] MEDS: Dorzolamide 2% Ophth Soln OU SCH ×2 (08:56→16:54)
--- NOTE | 2018-05-21 13:23 | CP.PCM.CON ---
History of Present Illness - History of Present Illness History of Present Illness: Neurology consult called by Dr. Sherrie Garcia. 67 yr old male with pmh of aortic stenosis, and multiple medical problems who now has left hand weakness and numbness for several days, since . Plan: 1. Mri Brain without contrast Consult dictated. Past Patient History - Past Medical History & Family History Past Medical History?: Yes - Past Social History Smoking Status: Never Smoked Chewing Tobacco Use: No - CARDIAC Hx Hypertension: Yes - PULMONARY Hx Respiratory Disorders: No - NEUROLOGICAL Hx Neurological Disorder: No - HEENT Hx HEENT Problems: Yes (SEE COMMENT) Other/Comment: bilateral red eyes swollen states due to blood pressure medication changes states vision is unaffected states will follow up with primary jaime for a check up/FOLLOW UP 12/05/[address] GLASER - RENAL Hx Chronic Kidney Disease: No - ENDOCRINE/METABOLIC Hx Endocrine Disorders: No - HEMATOLOGICAL/ONCOLOGICAL Hx Blood Disorders: No - INTEGUMENTARY Hx Dermatological Problems: No - MUSCULOSKELETAL/RHEUMATOLOGICAL Hx Musculoskeletal Disorders: No Hx Falls: No - GASTROINTESTINAL Hx Gastrointestinal Disorders: Yes (SEE COMMENT) Other/Comment: Umbilical hernia surgery in 2017 - GENITOURINARY/GYNECOLOGICAL Hx Genitourinary Disorders: Yes (SEE COMMENT) Other/Comment: BPH - PSYCHIATRIC Hx Substance Use: No - SURGICAL HISTORY Hx Surgeries: Yes (SEE COMMENT) Other/Comment: Peritonitis 1980 complication; pt. states had surgery unspecified and states appendix removal no problems during surgery or waking - ANESTHESIA Hx Anesthesia: Yes Hx Anesthesia Reactions: No Hx Malignant Hyperthermia: No Meds Allergies/Adverse Reactions: Allergies Allergy/AdvReac Type Severity Reaction Status Date / Time No Known Allergies Allergy Verified 05/16/18 16:33 - Medications Medications: Current Medications Acetaminophen (Tylenol 325mg Tab) 650 mg PO Q6 PRN PRN Reason: Pain, moderate (4-7) Last Admin: 05/19/18 21:15 Dose: 650 mg Acetaminophen (Tylenol 325mg Tab) 325 mg PO Q6 PRN PRN Reason: Pain, Mild (1-3) Acetaminophen (Tylenol 325mg Tab) 650 mg PO Q6 PRN PRN Reason: Fever >100.4 F Aspirin (Ecotrin) 81 mg PO DAILY [facility] Last Admin: 05/21/18 08:54 Dose: 81 mg Docusate Sodium (Colace) 100 mg PO BID [facility] Last Admin: 05/21/18 08:54 Dose: 100 mg Dorzolamide HCl (Trusopt) 1 drop OU BID [facility] Last Admin: 05/21/18 08:56 Dose: 1 drop Doxazosin Mesylate (Cardura) 8 mg PO HS [facility] Last Admin: 05/20/18 21:18 Dose: 8 mg Enoxaparin Sodium (Lovenox) 40 mg SC DAILY [facility]; Protocol Last Admin: 05/21/18 08:53 Dose: 40 mg Ergocalciferol (Drisdol 50,000 Intl Units Cap) 1 cap PO Q7D [facility] Last Admin: 05/20/18 08:08 Dose: 1 cap Metoprolol Tartrate (Lopressor) 12.5 mg PO Q12 [facility] Last Admin: 05/21/18 08:54 Dose: 12.5 mg Oxycodone HCl (Oxycodone Immediate Release Tab) 5 mg PO Q4 PRN PRN Reason: Pain, severe (8-10) Last Admin: 05/21/18 08:11 Dose: 5 mg Pantoprazole Sodium (Protonix Ec Tab) 40 mg PO DAILY [facility] Last Admin: 05/21/18 08:54 Dose: 40 mg Timolol Maleate (Timoptic 0.5% Ophth Soln) 1 drop OU BID [facility] Last Admin: 05/21/18 08:53 Dose: 1 drop Results - Vital Signs Recent Vital Signs: Last Vital Signs Temp 99.1 F 05/21/18 10:00 Pulse 79 05/21/18 10:00 Resp 20 05/21/18 10:00 BP 133/59 L 05/21/18 10:00 Pulse Ox 97 05/21/18 10:00 - Labs Result Diagrams: 05/20/18 07:07 05/20/18 07:07
[2018-05-22] MEDS: Enoxaparin 40 mg Syringe SC SCH (08:13)
[2018-05-22] MEDS: Bacitracin OINT 15GM TOP SCH ×2 (08:15→16:35)
[2018-05-22] MEDS: Pantoprazole 40 mg EC Tab PO SCH (08:18)
[2018-05-22] MEDS: Dorzolamide 2% Ophth Soln OU SCH ×2 (08:19→16:36)
--- NOTE | 2018-05-22 09:19 | CP.PCM.PN ---
Subjective - Date & Time of Evaluation Date of Evaluation: 05/22/18 Time of Evaluation: 09:17 - Subjective Subjective: participating well with pt cont to have mild upper extremity neuro consult appreciated brain mri hd stable nad Objective - Vital Signs/Intake and Output Vital Signs (last 24 hours): Temp Pulse Resp BP Pulse Ox 98 F 79 20 113/60 98 05/22/18 08:07 05/22/18 08:13 05/22/18 08:07 05/22/18 08:13 05/22/18 08:07 Intake and Output: Vitals Reviewed GEN: WDWN, alert, cooperative HEENT: NCAT, PERRL, EOMI HEART: RRR, +S1S2, NO MRG LUNG: CTAB, NO WRR ABD: soft, NT, ND, No HSM, No masses EXT: normal pedal pulses NEURO: awake, alert SKIN: warm, dry PSYCH: normal mood, normal affect - Medications Medications: Current Medications Acetaminophen (Tylenol 325mg Tab) 650 mg PO Q6 PRN PRN Reason: Pain, moderate (4-7) Last Admin: 05/21/18 19:30 Dose: 650 mg Acetaminophen (Tylenol 325mg Tab) 325 mg PO Q6 PRN PRN Reason: Pain, Mild (1-3) Acetaminophen (Tylenol 325mg Tab) 650 mg PO Q6 PRN PRN Reason: Fever >100.4 F Aspirin (Ecotrin) 81 mg PO DAILY [facility] Last Admin: 05/22/18 08:14 Dose: 81 mg Bacitracin (Bacitracin Oint) 1 applic TOP BID [facility] Last Admin: 05/22/18 08:15 Dose: 1 applic Docusate Sodium (Colace) 100 mg PO BID [facility] Last Admin: 05/22/18 08:15 Dose: 100 mg Dorzolamide HCl (Trusopt) 1 drop OU BID [facility] Last Admin: 05/22/18 08:19 Dose: 1 drop Doxazosin Mesylate (Cardura) 8 mg PO HS [facility] Last Admin: 05/21/18 21:32 Dose: Not Given Enoxaparin Sodium (Lovenox) 40 mg SC DAILY [facility]; Protocol Last Admin: 05/22/18 08:13 Dose: 40 mg Ergocalciferol (Drisdol 50,000 Intl Units Cap) 1 cap PO Q7D [facility] Last Admin: 05/20/18 08:08 Dose: 1 cap Metoprolol Tartrate (Lopressor) 12.5 mg PO Q12 [facility] Last Admin: 05/22/18 08:13 Dose: 12.5 mg Oxycodone HCl (Oxycodone Immediate Release Tab) 5 mg PO Q4 PRN PRN Reason: Pain, severe (8-10) Last Admin: 05/21/18 08:11 Dose: 5 mg Pantoprazole Sodium (Protonix Ec Tab) 40 mg PO DAILY [facility] Last Admin: 05/22/18 08:18 Dose: 40 mg Sennosides (Senokot Tab) 17.2 mg PO HS [facility] Last Admin: 05/21/18 21:33 Dose: 17.2 mg Timolol Maleate (Timoptic 0.5% Oph Soln) 1 drop OU BID [facility] Last Admin: 05/22/18 08:16 Dose: 1 drop - Labs Labs: 05/20/18 07:07 05/20/18 07:07 PT 13.3 Seconds (9.8-13.1) H 05/17/18 08:20 INR 1.2 05/17/18 08:20 APTT 28.6 Seconds (25.6-37.1) 05/17/18 08:20 Assessment and Plan - Assessment and Plan (Free Text) Plan: 67 y/o M with a PMH of Aortic Stenosis, HTN, glaucoma and BPH underwent aortic valve replacement and PFO closure at [facility] 05/12/18 and now transferred to acute rehab for PT. s/p Aortic Valve replacement and PFO closure Stable, afebrile. Continue PT , pain management surgical incision healing well with LUE numbness since surgery - Neuro consult appreciated - brain MRI HTN controlled on Metoprolol BPH on Doxazosin Glaucoma on eye drops DVT Prophylaxis SCD's Lovenox 40mg SC daily
--- NOTE | 2018-05-22 10:18 | CON ---
DATE: 05/21/2018 HISTORY OF PRESENT ILLNESS: This is a 67-year-old male with a past medical history of aortic stenosis, hypertension, glaucoma, and BPH, was admitted to acute rehab on 05/16/2018 for management and recovery from aortic valve replacement and PFO closure. The surgery took place on 05/12/2018. The patient presented with stroke-like symptoms initially and had an echo done and this abnormality was identified. Since being admitted to rehab, the patient has been complaining of new onset left arm and hand numbness and tingling and weakness. She denies aphasia, headache, nausea, vomiting, diarrhea or other complaints. Neurology consult was called today to evaluate this complaint. On exam, the patient does complain that he has weakness of his left hand and that this was not present before the PFO closure. He denies previous falls, he denies seizures. REVIEW OF SYSTEMS: As above. PAST MEDICAL HISTORY: Aortic stenosis, hypertension, glaucoma, and BPH. PAST SURGICAL HISTORY: Aortic valve replacement, PFO closure on 05/12/2018, and appendectomy in 1973. FAMILY HISTORY: Mother has diabetes type 2. SOCIAL HISTORY: . No smoking, no alcohol, or IVDA. MEDICATIONS: Listed on MAY. ALLERGIES: NO KNOWN DRUG ALLERGIES. PHYSICAL EXAMINATION: GENERAL: On exam, the patient is alert and oriented x 3. NEUROLOGIC: Pupils are equal, round, and reactive to light. Cranial nerves II through XII are normal. Extraocular movements are intact. Visual flores are full. Mini-mental status is 30/30. The exam was conducted in Mont[place]grin. Motor: Left surveillance camera technician is 2/5, left triceps are 3/5, left pronator is 3+/5. There is decreased sensation in the left arm as compared to the right arm. There is no facial droop. Tongue is midline. Right arm upper limb and lower limb are 5/5 bilaterally. Reflexes are +1 upper and lower limb bilaterally. Toes are downgoing. There is no clonus. Gait is normal as well. LABORATORY DATA: Labs are normal except for PT which is at 13.3. Chemistry shows that liver functions are normal. GFR is normal. Random glucose is 117. No CAT scan has been done on this admission. IMPRESSION: A 67-year-old male with risk factors for stroke. It is very possible he may be having a stroke affecting the right basal ganglia. If possible we will obtain MRI of the brain with and without contrast. If this is abnormal, I will transfer him to telemetry and perform a full stroke workup. For now, he is on aspirin, which is sufficient. Thank you for this interesting consult. Demario Cardenas MD MTDD
--- NOTE | 2018-05-22 13:09 | CT ---
Date of service: 05/22/2018 PROCEDURE: CT HEAD WITHOUT CONTRAST. HISTORY: left sided weakness COMPARISON: Not available TECHNIQUE: Axial computed tomography images were obtained through the head/brain without intravenous contrast. Radiation dose: Total exam DLP = 875.36 mGy-cm. This CT exam was performed using one or more of the following dose reduction techniques: Automated exposure control, adjustment of the mA and/or kV according to patient size, and/or use of iterative reconstruction technique. FINDINGS: HEMORRHAGE: No intracranial hemorrhage. BRAIN: No mass effect or edema. No atrophy or chronic microvascular ischemic changes. VENTRICLES: Unremarkable. No hydrocephalus. CALVARIUM: No fracture. Incidentally noted is a suspected lipoma left occipital scalp. PARANASAL SINUSES: Unremarkable as visualized. No significant inflammatory changes. MASTOID AIR CELLS: Unremarkable as visualized. No inflammatory changes. OTHER FINDINGS: None. IMPRESSION: No intracranial hemorrhage. No evidence of acute infarct or intracranial mass. 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
--- NOTE | 2018-05-22 13:24 | CP.PCM.PN ---
Subjective - Date & Time of Evaluation Date of Evaluation: 05/22/18 Time of Evaluation: 12:00 - Subjective Subjective: no acute complaints except still with occasional left hand discomfort Objective - Vital Signs/Intake and Output Vital Signs (last 24 hours): Temp Pulse Resp BP Pulse Ox 98 F 79 20 113/60 98 05/22/18 08:50 05/22/18 08:50 05/22/18 08:50 05/22/18 08:50 05/22/18 08:50 - Medications Medications: Current Medications Acetaminophen (Tylenol 325mg Tab) 650 mg PO Q6 PRN PRN Reason: Pain, moderate (4-7) Last Admin: 05/21/18 19:30 Dose: 650 mg Acetaminophen (Tylenol 325mg Tab) 325 mg PO Q6 PRN PRN Reason: Pain, Mild (1-3) Acetaminophen (Tylenol 325mg Tab) 650 mg PO Q6 PRN PRN Reason: Fever >100.4 F Aspirin (Ecotrin) 81 mg PO DAILY [facility] Last Admin: 05/22/18 08:14 Dose: 81 mg Bacitracin (Bacitracin Oint) 1 applic TOP BID [facility] Last Admin: 05/22/18 08:15 Dose: 1 applic Docusate Sodium (Colace) 100 mg PO BID [facility] Last Admin: 05/22/18 08:15 Dose: 100 mg Dorzolamide HCl (Trusopt) 1 drop OU BID [facility] Last Admin: 05/22/18 08:19 Dose: 1 drop Doxazosin Mesylate (Cardura) 8 mg PO HS [facility] Last Admin: 05/21/18 21:32 Dose: Not Given Enoxaparin Sodium (Lovenox) 40 mg SC DAILY [facility]; Protocol Last Admin: 05/22/18 08:13 Dose: 40 mg Ergocalciferol (Drisdol 50,000 Intl Units Cap) 1 cap PO Q7D [facility] Last Admin: 05/20/18 08:08 Dose: 1 cap Metoprolol Tartrate (Lopressor) 12.5 mg PO Q12 [facility] Last Admin: 05/22/18 08:13 Dose: 12.5 mg Oxycodone HCl (Oxycodone Immediate Release Tab) 5 mg PO Q4 PRN PRN Reason: Pain, severe (8-10) Last Admin: 05/21/18 08:11 Dose: 5 mg Pantoprazole Sodium (Protonix Ec Tab) 40 mg PO DAILY [facility] Last Admin: 05/22/18 08:18 Dose: 40 mg Sennosides (Senokot Tab) 17.2 mg PO HS [facility] Last Admin: 05/21/18 21:33 Dose: 17.2 mg Timolol Maleate (Timoptic 0.5% Ophth Soln) 1 drop OU BID [facility] Last Admin: 05/22/18 08:16 Dose: 1 drop - Labs Labs: 05/20/18 07:07 05/20/18 07:07 PT 13.3 Seconds (9.8-13.1) H 05/17/18 08:20 INR 1.2 05/17/18 08:20 APTT 28.6 Seconds (25.6-37.1) 05/17/18 08:20 - Constitutional Appears: Well - Head Exam Head Exam: ATRAUMATIC, NORMAL INSPECTION, NORMOCEPHALIC - Eye Exam Eye Exam: EOMI, Normal appearance, PERRL Pupil Exam: NORMAL ACCOMODATION - ENT Exam ENT Exam: Mucous Membranes Moist, Normal Exam - Neck Exam Neck Exam: Full ROM, Normal Inspection - Respiratory Exam Respiratory Exam: Clear to Ausculation Bilateral, NORMAL BREATHING PATTERN - Cardiovascular Exam Cardiovascular Exam: REGULAR RHYTHM - GI/Abdominal Exam GI & Abdominal Exam: Soft, Normal Bowel Sounds - Rectal Exam Rectal Exam: NORMAL INSPECTION - Exam External exam: NORMAL EXTERNAL EXAM - Extremities Exam Extremities Exam: Full ROM, Normal Capillary Refill, Normal Inspection - Back Exam Back Exam: NORMAL INSPECTION - Neurological Exam Neurological Exam: Alert, Awake Neuro motor strength exam: Left Upper Extremity: 3, Right Upper Extremity: 3, Left Lower Extremity: 3, Right Lower Extremity: 3 - Psychiatric Exam Psychiatric exam: Normal Affect, Normal Mood - Skin Skin Exam: Dry, Intact Assessment and Plan (1) FARIDA (acute kidney injury) Status: Acute (2) Dehydration Status: Acute (3) HTN (hypertension) Status: Acute - Assessment and Plan (Free Text) Assessment: Aortic stenosis, plan for physical, occupational therapy program. [place] of wrist splint,neurology follow up.
--- NOTE | 2018-05-22 14:38 | CP.PCM.PN ---
Subjective - Date & Time of Evaluation Date of Evaluation: 05/22/18 Time of Evaluation: 14:38 - Subjective Subjective: Neuro Follow-Up Note: Mr. Martinez was evaluated this afternoon with family at bedside. He is still complaining of numbness and weakness to the left arm, mostly the left hand. He has noticed a slight improvement in the numbness but it is still present. Unable to have MRI done 2/2 jaden from open heart surgery. He offers no other complaints. Denies h/a, dizziness, visual changes, chest pain, sob, abd pain, n/v/d. Objective - Vital Signs/Intake and Output Vital Signs (last 24 hours): Temp Pulse Resp BP Pulse Ox 98 F 79 20 113/60 98 05/22/18 08:50 05/22/18 08:50 05/22/18 08:50 05/22/18 08:50 05/22/18 08:50 - Medications Medications: Current Medications Acetaminophen (Tylenol 325mg Tab) 650 mg PO Q6 PRN PRN Reason: Pain, moderate (4-7) Last Admin: 05/21/18 19:30 Dose: 650 mg Acetaminophen (Tylenol 325mg Tab) 325 mg PO Q6 PRN PRN Reason: Pain, Mild (1-3) Acetaminophen (Tylenol 325mg Tab) 650 mg PO Q6 PRN PRN Reason: Fever >100.4 F Aspirin (Ecotrin) 81 mg PO DAILY [facility] Last Admin: 05/22/18 08:14 Dose: 81 mg Bacitracin (Bacitracin Oint) 1 applic TOP BID [facility] Last Admin: 05/22/18 08:15 Dose: 1 applic Docusate Sodium (Colace) 100 mg PO BID [facility] Last Admin: 05/22/18 08:15 Dose: 100 mg Dorzolamide HCl (Trusopt) 1 drop OU BID [facility] Last Admin: 05/22/18 08:19 Dose: 1 drop Doxazosin Mesylate (Cardura) 8 mg PO HS [facility] Last Admin: 05/21/18 21:32 Dose: Not Given Enoxaparin Sodium (Lovenox) 40 mg SC DAILY [facility]; Protocol Last Admin: 05/22/18 08:13 Dose: 40 mg Ergocalciferol (Drisdol 50,000 Intl Units Cap) 1 cap PO Q7D [facility] Last Admin: 05/20/18 08:08 Dose: 1 cap Metoprolol Tartrate (Lopressor) 12.5 mg PO Q12 [facility] Last Admin: 05/22/18 08:13 Dose: 12.5 mg Oxycodone HCl (Oxycodone Immediate Release Tab) 5 mg PO Q4 PRN PRN Reason: Pain, severe (8-10) Last Admin: 05/21/18 08:11 Dose: 5 mg Pantoprazole Sodium (Protonix Ec Tab) 40 mg PO DAILY [facility] Last Admin: 05/22/18 08:18 Dose: 40 mg Sennosides (Senokot Tab) 17.2 mg PO HS [facility] Last Admin: 05/21/18 21:33 Dose: 17.2 mg Timolol Maleate (Timoptic 0.5% Ophth Soln) 1 drop OU BID [facility] Last Admin: 05/22/18 08:16 Dose: 1 drop - Labs Labs: 05/20/18 07:07 05/20/18 07:07 PT 13.3 Seconds (9.8-13.1) H 05/17/18 08:20 INR 1.2 05/17/18 08:20 APTT 28.6 Seconds (25.6-37.1) 05/17/18 08:20 - Constitutional Appears: Non-toxic, No Acute Distress - Head Exam Head Exam: ATRAUMATIC, NORMAL INSPECTION, NORMOCEPHALIC - Eye Exam Eye Exam: EOMI, Normal appearance, PERRL Pupil Exam: NORMAL ACCOMODATION, PERRL - ENT Exam ENT Exam: Mucous Membranes Moist - Neck Exam Neck Exam: Full ROM, Normal Inspection - Respiratory Exam Respiratory Exam: NORMAL BREATHING PATTERN - Cardiovascular Exam Additional comments: post surgical site noted to mid ACW - Extremities Exam Extremities Exam: absent: Calf Tenderness, Full ROM, Pedal Edema Additional comments: FROM noted to RUE, BLE Decreased ROM to LUE; weakened felt finishing supervisor. - Neurological Exam Neurological Exam: Alert, Awake, CN II-XII Intact, Oriented x3, Reflexes Normal Neuro motor strength exam: Left Upper Extremity: 3 (felt finishing supervisor 2-3/5), Right Upper Extremity: 5, Left Lower Extremity: 5, Right Lower Extremity: 5 Additional comments: Speech clear, fluid Follows all commands FROM noted to RUE, BLE Decreased ROM to LUE; weakened felt finishing supervisor. Decreased sensation to LUE compared to RUE. Reflexes normal. No tremors. - Psychiatric Exam Psychiatric exam: Normal Affect, Normal Mood - Skin Skin Exam: Normal Color Additional comments: post surgical site noted to mid ACW Assessment and Plan (1) Upper extremity neuropathy Assessment & Plan: Imaging reviewed: -CT Head (05/21/18): No intracranial hemorrhage. No evidence of acute infarct or intracranial mass. 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 -C-Spine CT ordered---will f/u with results. -Continue current treatment and therapy. -Notify neuro team of any acute changes in pt's condition. Essie Andrews DNP, [employer] Case discussed with Dr. Cardenas Status: Acute
--- NOTE | 2018-05-22 18:47 | CP.PCM.CON ---
History of Present Illness - History of Present Illness History of Present Illness: I am asked to do a consultation on Hawk Martinez born 1950 who has been admitted to acute rehabilitation following AVR and PFO closure 05/12/18 at [facility]. He has developed left hand weakness and numbness and an EMG/NCS is being requested. Past Patient History - Past Medical History & Family History Past Medical History?: Yes - Past Social History Smoking Status: Never Smoked Chewing Tobacco Use: No - CARDIAC Hx Hypertension: Yes - PULMONARY Hx Respiratory Disorders: No - NEUROLOGICAL Hx Neurological Disorder: No - HEENT Hx HEENT Problems: Yes (SEE COMMENT) Other/Comment: bilateral red eyes swollen states due to blood pressure medication changes states vision is unaffected states will follow up with primary jaime for a check up/FOLLOW UP 12/05/[address] GLASER - RENAL Hx Chronic Kidney Disease: No - ENDOCRINE/METABOLIC Hx Endocrine Disorders: No - HEMATOLOGICAL/ONCOLOGICAL Hx Blood Disorders: No - INTEGUMENTARY Hx Dermatological Problems: No - MUSCULOSKELETAL/RHEUMATOLOGICAL Hx Musculoskeletal Disorders: No Hx Falls: No - GASTROINTESTINAL Hx Gastrointestinal Disorders: Yes (SEE COMMENT) Other/Comment: Umbilical hernia surgery in 2017 - GENITOURINARY/GYNECOLOGICAL Hx Genitourinary Disorders: Yes (SEE COMMENT) Other/Comment: BPH - PSYCHIATRIC Hx Substance Use: No - SURGICAL HISTORY Hx Surgeries: Yes (SEE COMMENT) Other/Comment: Peritonitis 1980 complication; pt. states had surgery unspecified and states appendix removal no problems during surgery or waking - ANESTHESIA Hx Anesthesia: Yes Hx Anesthesia Reactions: No Hx Malignant Hyperthermia: No Meds Allergies/Adverse Reactions: Allergies Allergy/AdvReac Type Severity Reaction Status Date / Time No Known Allergies Allergy Verified 05/16/18 16:33 - Medications Medications: Current Medications Acetaminophen (Tylenol 325mg Tab) 650 mg PO Q6 PRN PRN Reason: Pain, moderate (4-7) Last Admin: 05/21/18 19:30 Dose: 650 mg Acetaminophen (Tylenol 325mg Tab) 325 mg PO Q6 PRN PRN Reason: Pain, Mild (1-3) Acetaminophen (Tylenol 325mg Tab) 650 mg PO Q6 PRN PRN Reason: Fever >100.4 F Aspirin (Ecotrin) 81 mg PO DAILY [facility] Last Admin: 05/22/18 08:14 Dose: 81 mg Bacitracin (Bacitracin Oint) 1 applic TOP BID [facility] Last Admin: 05/22/18 16:35 Dose: 1 applic Docusate Sodium (Colace) 100 mg PO BID [facility] Last Admin: 05/22/18 16:35 Dose: 100 mg Dorzolamide HCl (Trusopt) 1 drop OU BID [facility] Last Admin: 05/22/18 16:36 Dose: 1 drop Doxazosin Mesylate (Cardura) 8 mg PO [facility] Last Admin: 05/21/18 21:32 Dose: Not Given Enoxaparin Sodium (Lovenox) 40 mg SC DAILY [facility]; Protocol Last Admin: 05/22/18 08:13 Dose: 40 mg Ergocalciferol (Drisdol 50,000 Intl Units Cap) 1 cap PO Q7D [facility] Last Admin: 05/20/18 08:08 Dose: 1 cap Metoprolol Tartrate (Lopressor) 12.5 mg PO Q12 [facility] Last Admin: 05/22/18 08:13 Dose: 12.5 mg Oxycodone HCl (Oxycodone Immediate Release Tab) 5 mg PO Q4 PRN PRN Reason: Pain, severe (8-10) Last Admin: 05/21/18 08:11 Dose: 5 mg Pantoprazole Sodium (Protonix Ec Tab) 40 mg PO DAILY [facility] Last Admin: 05/22/18 08:18 Dose: 40 mg Sennosides (Senokot Tab) 17.2 mg PO [facility] Last Admin: 05/21/18 21:33 Dose: 17.2 mg Timolol Maleate (Timoptic 0.5% Ophth Soln) 1 drop OU BID [facility] Last Admin: 05/22/18 16:36 Dose: 1 drop Results - Vital Signs Recent Vital Signs: Last Vital Signs Temp 98 F 05/22/18 08:50 Pulse 79 05/22/18 08:50 Resp 20 05/22/18 08:50 BP 113/60 05/22/18 08:50 Pulse Ox 98 05/22/18 08:50 - Labs Result Diagrams: 05/20/18 07:07 05/20/18 07:07 Assessment & Plan - Assessment and Plan (Free Text) Assessment: 67 year old male s/p AVR with healing sternal incision minimal erythema and no significant drainage has markedly weak left hand intrinsics and FDI wasting + tinel's at the elbow no APB wasting he is right hand dominant I will do the emg/ncs on 05/25/18 of the left UE to evaluate for an ulnar neuropathy
--- NOTE | 2018-05-22 19:07 | CT ---
Date of service: 05/22/2018 PROCEDURE: CT Cervical Spine without contrast HISTORY: Left arm and hand paresthesias; r/o cervical involvement COMPARISON: None available. TECHNIQUE: Axial computed tomography images were obtained of the cervical spine without the use of intravenous contrast. Coronal and sagittal reformatted images were created and reviewed. Radiation dose: Total exam DLP = 353.54 mGy-cm. This CT exam was performed using one or more of the following dose reduction techniques: Automated exposure control, adjustment of the mA and/or kV according to patient size, and/or use of iterative reconstruction technique. FINDINGS: VERTEBRAE: No acute compression fractures however minor chronic anterior stature loss of the C6 and to a lesser degree C5 segments felt to be degenerative in origin.. There is also very slight anterior stature loss of the C7 segment vertebral bodies otherwise exhibit relatively normal stature.. Vertebral bodies and facets normally aligned. Multilevel degenerative spondylosis. DISCS/SPINAL CANAL/NEURAL FORAMINA: Multilevel degenerative spondylosis. There are varying degrees of disc space narrowing with a prominent anterior and smaller posterior osteophyte formation. At the C2-C3 level, there is small central and bilateral left slightly larger than right disc protrusion disc bulge that flattens the ventral surface of the thecal sac and spinal cord. Central canal appears adequate. The uncovertebral joints are slightly overgrown. Facets also mildly hypertrophic. Exit foramina appear adequate. There is a sclerotic lesion within the right posterior lamina/proximal right aspect of the bifid spinous process. This could represent a bone island or osteoma. Note the possibility of a sclerotic metastatic lesion not completely excluded. At the C3-C4 level, there is a small irregular disc protrusion-ridge complex larger on the left than right contiguous with hypertrophic uncovertebral joints left greater than right. Small amount of vacuum phenomena is present. Changes result in moderate central canal stenosis and cord compression more so on the left side. Left exit foramen stenotic due to the aforementioned hypertrophic uncovertebral joint changes with hypertrophy of the facets as well. Right exit foramen is marginal to adequate. At the C4-C5 level, there is small central and bilateral disc protrusion ridge complex that compresses the ventral surface of the cord. Central canal appears adequate. Uncovertebral facets are hypertrophic left greater than right with left-sided foraminal stenosis. Right exit foramen is mildly narrowed. At the C5-C6 level, there is mild disc space narrowing.. Small broad-based disc ridge complex compresses the ventral surface of the thecal sac and cord. Central canal appears adequate. Uncovertebral facets are mildly hypertrophic with mild bilateral foraminal narrowing. Similar changes seen at the C6-C7 level. PARASPINAL SOFT TISSUES: Unremarkable. OTHER FINDINGS: None. IMPRESSION: No acute fractures. Multilevel degenerative spondylosis as detailed above.
[2018-05-23 07:27] LABS: HEMOGLOBIN 11.5 g/dL (12.0-18.0); MEAN CELL VOLUME 86.5 fl (80.0-94.0); MEAN CORPUSCULAR HGB CONC 33.5 g/dL (33.0-37.0); RBC 3.96 Mil/uL (4.40-5.90); RED CELL DISTRIBUTION WIDTH 13.5 % (11.5-14.5); WHITE BLOOD COUNT 7.2 K/uL (4.8-10.8)
[2018-05-23 07:48] LABS: BLOOD UREA NITROGEN 16 mg/dl (9-20); CALCIUM 9.3 mg/dL (8.4-10.2); GFR NON-AFRICAN AMERICAN 51
[2018-05-23] MEDS: Bacitracin OINT 15GM TOP SCH ×2 (08:28→17:30)
[2018-05-23] MEDS: Pantoprazole 40 mg EC Tab PO SCH (08:29)
[2018-05-23] MEDS: Dorzolamide 2% Ophth Soln OU SCH ×2 (08:31→17:31)
[2018-05-23] MEDS: Enoxaparin 40 mg Syringe SC SCH (09:11)
[2018-05-23] MEDS: oxyCODONE 5 mg Immediate Release Tab PO PRN (11:04)
[2018-05-24] MEDS: oxyCODONE 5 mg Immediate Release Tab PO PRN (06:23)
[2018-05-24] MEDS: Bacitracin OINT 15GM TOP SCH ×2 (08:18→17:28)
[2018-05-24] MEDS: Enoxaparin 40 mg Syringe SC SCH (08:22)
[2018-05-24] MEDS: Dorzolamide 2% Ophth Soln OU SCH ×2 (08:24→17:30)
[2018-05-24] MEDS: Pantoprazole 40 mg EC Tab PO SCH (08:25)
[2018-05-24 23:00] VITALS: RESP 20; O2SAT 97
[2018-05-25] MEDS: Pantoprazole 40 mg EC Tab PO SCH (08:01)
[2018-05-25] MEDS: Bacitracin OINT 15GM TOP SCH ×2 (08:01→17:00)
[2018-05-25] MEDS: Enoxaparin 40 mg Syringe SC SCH (08:02)
[2018-05-25] MEDS: Dorzolamide 2% Ophth Soln OU SCH ×2 (08:06→16:59)
--- NOTE | 2018-05-25 10:51 | CP.PCM.PN ---
Subjective - Date & Time of Evaluation Date of Evaluation: 05/25/18 Time of Evaluation: 10:51 - Subjective Subjective: doing well with PT no acute distress hd stable Objective - Vital Signs/Intake and Output Vital Signs (last 24 hours): Temp Pulse Resp BP Pulse Ox 97.9 F 79 20 114/65 97 05/25/18 07:38 05/25/18 08:02 05/25/18 07:38 05/25/18 08:02 05/25/18 07:38 - Medications Medications: Current Medications Acetaminophen (Tylenol 325mg Tab) 650 mg PO Q6 PRN PRN Reason: Pain, moderate (4-7) Last Admin: 05/23/18 09:35 Dose: 650 mg Acetaminophen (Tylenol 325mg Tab) 325 mg PO Q6 PRN PRN Reason: Pain, Mild (1-3) Acetaminophen (Tylenol 325mg Tab) 650 mg PO Q6 PRN PRN Reason: Fever >100.4 F Aspirin (Ecotrin) 81 mg PO DAILY [facility] Last Admin: 05/25/18 08:01 Dose: 81 mg Bacitracin (Bacitracin Oint) 1 applic TOP BID [facility] Last Admin: 05/25/18 08:01 Dose: 1 applic Docusate Sodium (Colace) 100 mg PO BID [facility] Last Admin: 05/25/18 08:02 Dose: 100 mg Dorzolamide HCl (Trusopt) 1 drop OU BID [facility] Last Admin: 05/25/18 08:06 Dose: 1 drop Doxazosin Mesylate (Cardura) 8 mg PO HS [facility] Last Admin: 05/24/18 21:27 Dose: 8 mg Enoxaparin Sodium (Lovenox) 40 mg SC DAILY [facility]; Protocol Last Admin: 05/25/18 08:02 Dose: 40 mg Ergocalciferol (Drisdol 50,000 Intl Units Cap) 1 cap PO Q7D [facility] Last Admin: 05/20/18 08:08 Dose: 1 cap Metoprolol Tartrate (Lopressor) 12.5 mg PO Q12 [facility] Last Admin: 05/25/18 08:02 Dose: 12.5 mg Oxycodone HCl (Oxycodone Immediate Release Tab) 5 mg PO Q4 PRN PRN Reason: Pain, severe (8-10) Last Admin: 05/24/18 06:23 Dose: 5 mg Pantoprazole Sodium (Protonix Ec Tab) 40 mg PO DAILY [facility] Last Admin: 05/25/18 08:01 Dose: 40 mg Sennosides (Senokot Tab) 17.2 mg PO HS [facility] Last Admin: 05/24/18 21:28 Dose: 17.2 mg Timolol Maleate (Timoptic 0.5% Ophth Soln) 1 drop OU BID [facility] Last Admin: 05/25/18 08:00 Dose: 1 drop - Labs Labs: 05/23/18 05:30 05/23/18 05:30 PT 13.3 Seconds (9.8-13.1) H 05/17/18 08:20 INR 1.2 05/17/18 08:20 APTT 28.6 Seconds (25.6-37.1) 05/17/18 08:20 - Constitutional Appears: Non-toxic, No Acute Distress - Head Exam Head Exam: ATRAUMATIC, NORMOCEPHALIC - Eye Exam Eye Exam: EOMI, Normal appearance Pupil Exam: NORMAL ACCOMODATION - ENT Exam ENT Exam: Mucous Membranes Moist, Normal Oropharynx - Respiratory Exam Respiratory Exam: Clear to Ausculation Bilateral, NORMAL BREATHING PATTERN - Cardiovascular Exam Cardiovascular Exam: RRR, +S1, +S2 - GI/Abdominal Exam GI & Abdominal Exam: Soft, Normal Bowel Sounds - Extremities Exam Extremities Exam: Full ROM, Normal Capillary Refill - Back Exam Back Exam: absent: CVA tenderness (L), CVA tenderness (R) - Neurological Exam Neurological Exam: Alert, Awake - Psychiatric Exam Psychiatric exam: Normal Affect, Normal Mood - Skin Skin Exam: Dry, Warm Assessment and Plan - Assessment and Plan (Free Text) Plan: 67 y/o M with a PMH of Aortic Stenosis, HTN, glaucoma and BPH underwent aortic valve replacement and PFO closure at [facility] 05/12/18 and now transferred to acute rehab for PT. s/p Aortic Valve replacement and PFO closure Stable, afebrile. Continue PT , pain management surgical incision healing well with LUE numbness since surgery - Neuro consult appreciated - brain MRI HTN controlled on Metoprolol BPH on Doxazosin Glaucoma on eye drops DVT Prophylaxis SCD's Lovenox 40mg SC daily
--- NOTE | 2018-05-25 11:08 | CP.PCM.PN ---
Subjective - Date & Time of Evaluation Date of Evaluation: 05/25/18 Time of Evaluation: 11:07 - Subjective Subjective: Neuro Follow-Up Note: Mr. Martinez was evaluated this afternoon with at bedside. He is still complaining of numbness and weakness to the left arm, mostly the left hand. He does admit to an improvement in the numbness and weakness since I last saw him on Friday. He is doing well per him and the . He is anticipating a d/c home tomorrow afternoon. Denies h/a, dizziness, visual changes, chest pain, sob, abd pain, n/v/d. Objective - Vital Signs/Intake and Output Vital Signs (last 24 hours): Temp Pulse Resp BP Pulse Ox 97.9 F 79 20 114/65 97 05/25/18 07:38 05/25/18 08:02 05/25/18 07:38 05/25/18 08:02 05/25/18 07:38 - Medications Medications: Current Medications Acetaminophen (Tylenol 325mg Tab) 650 mg PO Q6 PRN PRN Reason: Pain, moderate (4-7) Last Admin: 05/23/18 09:35 Dose: 650 mg Acetaminophen (Tylenol 325mg Tab) 325 mg PO Q6 PRN PRN Reason: Pain, Mild (1-3) Acetaminophen (Tylenol 325mg Tab) 650 mg PO Q6 PRN PRN Reason: Fever >100.4 F Aspirin (Ecotrin) 81 mg PO DAILY [facility] Last Admin: 05/25/18 08:01 Dose: 81 mg Bacitracin (Bacitracin Oint) 1 applic TOP BID [facility] Last Admin: 05/25/18 08:01 Dose: 1 applic Docusate Sodium (Colace) 100 mg PO BID [facility] Last Admin: 05/25/18 08:02 Dose: 100 mg Dorzolamide HCl (Trusopt) 1 drop OU BID [facility] Last Admin: 05/25/18 08:06 Dose: 1 drop Doxazosin Mesylate (Cardura) 8 mg PO HS [facility] Last Admin: 05/24/18 21:27 Dose: 8 mg Enoxaparin Sodium (Lovenox) 40 mg SC DAILY [facility]; Protocol Last Admin: 05/25/18 08:02 Dose: 40 mg Ergocalciferol (Drisdol 50,000 Intl Units Cap) 1 cap PO Q7D [facility] Last Admin: 05/20/18 08:08 Dose: 1 cap Metoprolol Tartrate (Lopressor) 12.5 mg PO Q12 [facility] Last Admin: 05/25/18 08:02 Dose: 12.5 mg Oxycodone HCl (Oxycodone Immediate Release Tab) 5 mg PO Q4 PRN PRN Reason: Pain, severe (8-10) Last Admin: 05/24/18 06:23 Dose: 5 mg Pantoprazole Sodium (Protonix Ec Tab) 40 mg PO DAILY [facility] Last Admin: 05/25/18 08:01 Dose: 40 mg Sennosides (Senokot Tab) 17.2 mg PO HS [facility] Last Admin: 05/24/18 21:28 Dose: 17.2 mg Timolol Maleate (Timoptic 0.5% Ophth Soln) 1 drop OU BID [facility] Last Admin: 05/25/18 08:00 Dose: 1 drop - Labs Labs: 05/23/18 05:30 05/23/18 05:30 PT 13.3 Seconds (9.8-13.1) H 05/17/18 08:20 INR 1.2 05/17/18 08:20 APTT 28.6 Seconds (25.6-37.1) 05/17/18 08:20 - Constitutional Appears: Well, Non-toxic, No Acute Distress - Head Exam Head Exam: ATRAUMATIC, NORMAL INSPECTION, NORMOCEPHALIC - Eye Exam Eye Exam: EOMI, Normal appearance, PERRL Pupil Exam: NORMAL ACCOMODATION, PERRL - ENT Exam ENT Exam: Mucous Membranes Moist - Neck Exam Neck Exam: Full ROM, Normal Inspection - Respiratory Exam Respiratory Exam: NORMAL BREATHING PATTERN - Cardiovascular Exam Additional comments: post surgical site noted to mid ACW - Extremities Exam Extremities Exam: Full ROM. absent: Calf Tenderness, Pedal Edema Additional comments: moves all extremities weakened jack tamp operator still noted to left hand; slightly decreased ROM to LUE but improved since Friday - Neurological Exam Neurological Exam: Alert, Awake, CN II-XII Intact, Oriented x3 Neuro motor strength exam: Left Upper Extremity: 4 (jack tamp operator 4/5), Right Upper Extremity: 5 (jack tamp operator 5/5), Left Lower Extremity: 5, Right Lower Extremity: 5 Additional comments: Speech clear, fluid Follows all commands Still has slightly weakened jack tamp operator to left hand but improved since Friday Decreased sensation to LUE compared to RUE. Reflexes normal. No tremors. - Psychiatric Exam Psychiatric exam: Normal Affect, Normal Mood - Skin Skin Exam: Normal Color Additional comments: post-surgical site noted to mid acw with dressing intact Assessment and Plan (1) Upper extremity neuropathy Assessment & Plan: Imaging reviewed: -CT C-Cpine ): No acute fractures. Multilevel degenerative spondylosis as detailed above. -CT Head (05/21/18): No intracranial hemorrhage. No evidence of acute infarct or intracranial mass. 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 -Continue current treatment and therapy. -Dr. Laboy to do EMG/NCS per his last note. -Upon d/c pt can f/u with neuro team in the office prn. -Notify neuro team of any acute changes in pt's condition. Essie Andrews DNP, [employer] Case discussed with Dr. Douglas Status: Acute
--- NOTE | 2018-05-25 17:20 | CP.PCM.PN ---
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 no evidence of a cervical radiculopathy Objective - Vital Signs/Intake and Output Vital Signs (last 24 hours): Temp Pulse Resp BP Pulse Ox 97.9 F 79 20 114/65 97 05/25/18 07:38 05/25/18 10:00 05/25/18 07:38 05/25/18 08:02 05/25/18 07:38 - Medications Medications: Current Medications Acetaminophen (Tylenol 325mg Tab) 650 mg PO Q6 PRN PRN Reason: Pain, moderate (4-7) Last Admin: 05/23/18 09:35 Dose: 650 mg Acetaminophen (Tylenol 325mg Tab) 325 mg PO Q6 PRN PRN Reason: Pain, Mild (1-3) Acetaminophen (Tylenol 325mg Tab) 650 mg PO Q6 PRN PRN Reason: Fever >100.4 F Aspirin (Ecotrin) 81 mg PO DAILY [facility] Last Admin: 05/25/18 08:01 Dose: 81 mg Bacitracin (Bacitracin Oint) 1 applic TOP BID [facility] Last Admin: 05/25/18 17:00 Dose: 1 applic Docusate Sodium (Colace) 100 mg PO BID [facility] Last Admin: 05/25/18 16:58 Dose: 100 mg Dorzolamide HCl (Trusopt) 1 drop OU BID [facility] Last Admin: 05/25/18 16:59 Dose: 1 drop Doxazosin Mesylate (Cardura) 8 mg PO HS [facility] Last Admin: 05/24/18 21:27 Dose: 8 mg Enoxaparin Sodium (Lovenox) 40 mg SC DAILY [facility]; Protocol Last Admin: 05/25/18 08:02 Dose: 40 mg Ergocalciferol (Drisdol 50,000 Intl Units Cap) 1 cap PO Q7D [facility] Last Admin: 05/20/18 08:08 Dose: 1 cap Metoprolol Tartrate (Lopressor) 12.5 mg PO Q12 [facility] Last Admin: 05/25/18 08:02 Dose: 12.5 mg Oxycodone HCl (Oxycodone Immediate Release Tab) 5 mg PO Q4 PRN PRN Reason: Pain, severe (8-10) Last Admin: 05/24/18 06:23 Dose: 5 mg Pantoprazole Sodium (Protonix Ec Tab) 40 mg PO DAILY [facility] Last Admin: 05/25/18 08:01 Dose: 40 mg Sennosides (Senokot Tab) 17.2 mg PO HS [facility] Last Admin: 05/24/18 21:28 Dose: 17.2 mg Timolol Maleate (Timoptic 0.5% Oph Soln) 1 drop OU BID [facility] Last Admin: 05/25/18 17:02 Dose: 1 drop - Labs Labs: 05/23/18 05:30 05/23/18 05:30 PT 13.3 Seconds (9.8-13.1) H 05/17/18 08:20 INR 1.2 05/17/18 08:20 APTT 28.6 Seconds (25.6-37.1) 05/17/18 08:20
--- NOTE | 2018-05-25 18:17 | CP.PCM.PN ---
Subjective - Date & Time of Evaluation Date of Evaluation: 05/24/18 Time of Evaluation: 12:00 - Subjective Subjective: patient with complaints of hand numbness and tingling, Objective - Vital Signs/Intake and Output Vital Signs (last 24 hours): Temp Pulse Resp BP Pulse Ox 97.9 F 79 20 114/65 97 05/25/18 07:38 05/25/18 10:00 05/25/18 07:38 05/25/18 08:02 05/25/18 07:38 - Medications Medications: Current Medications Acetaminophen (Tylenol 325mg Tab) 650 mg PO Q6 PRN PRN Reason: Pain, moderate (4-7) Last Admin: 05/23/18 09:35 Dose: 650 mg Acetaminophen (Tylenol 325mg Tab) 325 mg PO Q6 PRN PRN Reason: Pain, Mild (1-3) Acetaminophen (Tylenol 325mg Tab) 650 mg PO Q6 PRN PRN Reason: Fever >100.4 F Aspirin (Ecotrin) 81 mg PO DAILY [facility] Last Admin: 05/25/18 08:01 Dose: 81 mg Bacitracin (Bacitracin Oint) 1 applic TOP BID [facility] Last Admin: 05/25/18 17:00 Dose: 1 applic Docusate Sodium (Colace) 100 mg PO BID [facility] Last Admin: 05/25/18 16:58 Dose: 100 mg Dorzolamide HCl (Trusopt) 1 drop OU BID [facility] Last Admin: 05/25/18 16:59 Dose: 1 drop Doxazosin Mesylate (Cardura) 8 mg PO HS [facility] Last Admin: 05/24/18 21:27 Dose: 8 mg Enoxaparin Sodium (Lovenox) 40 mg SC DAILY [facility]; Protocol Last Admin: 05/25/18 08:02 Dose: 40 mg Ergocalciferol (Drisdol 50,000 Intl Units Cap) 1 cap PO Q7D [facility] Last Admin: 05/20/18 08:08 Dose: 1 cap Metoprolol Tartrate (Lopressor) 12.5 mg PO Q12 [facility] Last Admin: 05/25/18 08:02 Dose: 12.5 mg Oxycodone HCl (Oxycodone Immediate Release Tab) 5 mg PO Q4 PRN PRN Reason: Pain, severe (8-10) Last Admin: 05/24/18 06:23 Dose: 5 mg Pantoprazole Sodium (Protonix Ec Tab) 40 mg PO DAILY [facility] Last Admin: 05/25/18 08:01 Dose: 40 mg Sennosides (Senokot Tab) 17.2 mg PO HS [facility] Last Admin: 05/24/18 21:28 Dose: 17.2 mg Timolol Maleate (Timoptic 0.5% Ophth Soln) 1 drop OU BID [facility] Last Admin: 05/25/18 17:02 Dose: 1 drop - Labs Labs: 05/23/18 05:30 05/23/18 05:30 PT 13.3 Seconds (9.8-13.1) H 05/17/18 08:20 INR 1.2 05/17/18 08:20 APTT 28.6 Seconds (25.6-37.1) 05/17/18 08:20 - Constitutional Appears: Well - Head Exam Head Exam: ATRAUMATIC, NORMAL INSPECTION, NORMOCEPHALIC - Eye Exam Eye Exam: EOMI, Normal appearance Pupil Exam: NORMAL ACCOMODATION, PERRL - ENT Exam ENT Exam: Mucous Membranes Moist - Neck Exam Neck Exam: Full ROM - Respiratory Exam Respiratory Exam: Clear to Ausculation Bilateral, NORMAL BREATHING PATTERN - Cardiovascular Exam Cardiovascular Exam: REGULAR RHYTHM - GI/Abdominal Exam GI & Abdominal Exam: Soft, Normal Bowel Sounds - Exam External exam: NORMAL EXTERNAL EXAM - Extremities Exam Extremities Exam: Full ROM, Normal Capillary Refill, Normal Inspection - Back Exam Back Exam: NORMAL INSPECTION - Neurological Exam Neurological Exam: Alert Neuro motor strength exam: Left Upper Extremity: 3, Right Upper Extremity: 3, Left Lower Extremity: 3, Right Lower Extremity: 3 - Psychiatric Exam Psychiatric exam: Normal Affect - Skin Skin Exam: Normal Color Assessment and Plan (1) FARIDA (acute kidney injury) Status: Acute (2) Dehydration Status: Acute (3) HTN (hypertension) Status: Acute - Assessment and Plan (Free Text) Assessment: Aortic stenosis, status post surgery, patient for electrodiagnostic studies to rule out radiculopathy, versus carpel tunnel syndrome, to continue with physical, occupational, rec therapy
[2018-05-26 06:21] LABS: HEMOGLOBIN 11.5 g/dL (12.0-18.0); MEAN CELL VOLUME 86.2 fl (80.0-94.0); MEAN CORPUSCULAR HEMOGLOBIN 28.6 pg (27.0-31.0); MEAN CORPUSCULAR HGB CONC 33.2 g/dL (33.0-37.0); RBC 4.03 Mil/uL (4.40-5.90); RED CELL DISTRIBUTION WIDTH 13.4 % (11.5-14.5); WHITE BLOOD COUNT 8.4 K/uL (4.8-10.8)
[2018-05-26 06:30] LABS: BLOOD UREA NITROGEN 17 mg/dl (9-20); CALCIUM 9.3 mg/dL (8.4-10.2); GFR NON-AFRICAN AMERICAN 55
[2018-05-26 07:33] VITALS: BP 118/67; PULSE 78; TEMP 98.2
[2018-05-26] MEDS: Bacitracin OINT 15GM TOP SCH (09:17)
[2018-05-26] MEDS: Dorzolamide 2% Ophth Soln OU SCH (09:17)
[2018-05-26] MEDS: Enoxaparin 40 mg Syringe SC SCH (09:17)
[2018-05-26] MEDS: Pantoprazole 40 mg EC Tab PO SCH (09:19)
--- NOTE | 2018-05-26 13:27 | CP.PCM.DIS ---
Provider - Provider Date of Admission: 05/16/18 16:33 Attending physician: Sherrie Garcia DO Consults: 05/16/18 17:57 Physiatry Consult Routine Comment: Consulting Provider: Raheel Leos Consulting Physician: Raheel Leos Reason for Consult: S/P Aortic Valve Replacement adn PFO Closure 05/16/18 18:06 Case Management Referral Routine Comment: Physician Instructions: Reason For Exam: Aortic Valve Stenosis s/p AVR with PFO closure Reason for Referral: Discharge Planning 05/17/18 08:00 Pharmacist Consult As Ordered Comment: Physician Instructions: Reason For Exam: Patient on Lovenox and has > 10 meds Social Work Referral Routine Comment: Discharge planning Physician Instructions: Reason For Exam: Discharge planning 05/19/18 15:15 Neurology Consult Routine Comment: Consulting Provider: Demario Cardenas Consulting Physician: Demario Cardenas Reason for Consult: tingling left arm 05/22/18 15:00 Physiatry Consult Routine Comment: Consulting Provider: Bill Laboy Consulting Physician: Bill Laboy Reason for Consult: for EMG STUDY to R/O nerve damage Time Spent in preparation of Discharge (in minutes): 30 Hospital Course - Lab Results Lab Results: Most Recent Lab Values WBC 8.4 K/uL (4.8-10.8) 05/26/18 05:30 RBC 4.03 Mil/uL (4.40-5.90) L 05/26/18 05:30 Hgb 11.5 g/dL (12.0-18.0) L 05/26/18 05:30 Hct 34.8 % (35.0-51.0) L 05/26/18 05:30 MCV 86.2 fl (80.0-94.0) 05/26/18 05:30 MCH 28.6 pg (27.0-31.0) 05/26/18 05:30 MCHC 33.2 g/dL (33.0-37.0) 05/26/18 05:30 RDW 13.4 % (11.5-14.5) 05/26/18 05:30 Plt Count 420 K/uL (130-400) H 05/26/18 05:30 PT 13.3 Seconds (9.8-13.1) H 05/17/18 08:20 INR 1.2 05/17/18 08:20 APTT 28.6 Seconds (25.6-37.1) 05/17/18 08:20 Sodium 135 mmol/l (132-148) 05/26/18 05:30 Potassium 4.8 MMOL/L (3.6-5.0) 05/26/18 05:30 Chloride 102 mmol/L (98-107) 05/26/18 05:30 Carbon Dioxide 24 mmol/L (22-30) 05/26/18 05:30 Anion Gap 14 (10-20) 05/26/18 05:30 BUN 17 mg/dl (9-20) 05/26/18 05:30 Creatinine 1.3 mg/dl (0.8-1.5) 05/26/18 05:30 Est GFR ( Amer) > 60 05/26/18 05:30 Est GFR (Non-Af Amer) 55 05/26/18 05:30 Random Glucose 117 mg/dL (75-110) H 05/26/18 05:30 Calcium 9.3 mg/dL (8.4-10.2) 05/26/18 05:30 Total Bilirubin 1.0 mg/dl (0.2-1.3) 05/17/18 11:00 AST 31 U/L (17-59) 05/17/18 11:00 ALT 41 U/L (21-72) 05/17/18 11:00 Alkaline Phosphatase 160 U/L (38-126) H D 05/17/18 11:00 Troponin I 0.2070 ng/mL (0.00-0.120) H* 05/18/18 09:07 Total Protein 6.1 G/DL (6.3-8.2) L 05/17/18 11:00 Albumin 3.1 g/dL (3.5-5.0) L 05/17/18 11:00 Globulin 3.0 gm/dL (2.2-3.9) 05/17/18 11:00 Albumin/Globulin Ratio 1.1 (1.0-2.1) 05/17/18 11:00 - Hospital Course Hospital Course: 67 y/o M with a PMH of Aortic Stenosis, HTN, glaucoma and BPH underwent aortic valve replacement and PFO closure at [facility] 05/12/18 and now transferred to acute rehab for PT. Patient did well, no complaints. Stable for discharge home. s/p Aortic Valve replacement and PFO closure Stable, afebrile. Continue PT , pain management surgical incision healing well with LUE numbness since surgery - Neuro consult appreciated HTN controlled on Metoprolol BPH on Doxazosin Glaucoma on eye drops DVT Prophylaxis SCD's Lovenox 40mg SC daily Discharge Exam - Head Exam Head Exam: ATRAUMATIC, NORMAL INSPECTION, NORMOCEPHALIC - Eye Exam Eye Exam: EOMI, Normal appearance, PERRL - ENT Exam ENT Exam: Mucous Membranes Moist, Normal Oropharynx - Respiratory Exam Respiratory Exam: Clear to PA & Lateral, Rhonchi - Cardiovascular Exam Cardiovascular Exam: RRR, +S1, +S2 - GI/Abdominal Exam GI & Abdominal Exam: Normal Bowel Sounds, Soft. absent: Tenderness - Extremities Exam Extremities exam: normal capillary refill, pedal pulses present - Back Exam Back exam: absent: CVA tenderness (L), CVA tenderness (R) - Neurological Exam Neurological exam: Alert, Oriented x3 - Psychiatric Exam Psychiatric exam: Normal Affect, Normal Mood - Skin Skin Exam: Dry, Normal Color, Warm Discharge Plan - Discharge Medications Prescriptions: Aspirin [Ecotrin] 81 mg PO DAILY #30 tabec Docusate Sodium [Porter' Laxative] 100 mg PO BID #60 capsule Dorzolamide 2% [Trusopt] 1 drop OU BID #1 bottle Doxazosin [Cardura] 8 mg PO HS #30 tab Ergocalciferol [Drisdol 50,000 Intl Units Cap] 50,000 iu PO QWK #7 cap Metoprolol Tartrate [Lopressor] 12.5 mg PO Q12 #60 tab oxyCODONE [oxyCODONE Immediate Release Tab] 5 mg PO Q4 PRN #20 tab PRN Reason: Pain. Timolol 0.5% Ophth [Timoptic 0.5% Ophth Soln] 1 drop OU BID #1 bottle - Follow Up Plan Condition: GOOD Disposition: HOME/ ROUTINE Instructions: Aortic Valve Replacement, Timolol (Ophthalmic), Aspirin, Dorzolamide, Metoprolol, Pantoprazole, Docusate and Senna, Aortic Valve Replacement (DC)
== END 2018-05-26 16:43 | disposition home health service (06) | DRG 949 ==
PROVIDERS: ADMIT Student in an Organized Health Care Education/Training Program; ATTEND Student in an Organized Health Care Education/Training Program
PROC: F07Z9FZ Gait Training/Functional Ambulation Treatment using Assistive, Adaptive, Supportive or Protective Equipment (ICD-10-PCS; principal; 2018-05-18)
PROC: F08Z1ZZ Dressing Techniques Treatment (ICD-10-PCS; 2018-05-18)
PROC: F07M6FZ Therapeutic Exercise Treatment of Musculoskeletal System - Whole Body using Assistive, Adaptive, Supportive or Protective Equipment (ICD-10-PCS; 2018-05-18)
PROC: F08Z4FZ Home Management Treatment using Assistive, Adaptive, Supportive or Protective Equipment (ICD-10-PCS; 2018-05-18)
DX: Z48.812 Encounter for surgical aftercare following surgery on the circulatory system (principal); N17.9 Acute kidney failure, unspecified; Z95.2 Presence of prosthetic heart valve; M25.512 Pain in left shoulder; M54.6 Pain in thoracic spine; R07.89 Other chest pain; D17.9 Benign lipomatous neoplasm, unspecified; E86.0 Dehydration; G56.01 Carpal tunnel syndrome, right upper limb; G56.02 Carpal tunnel syndrome, left upper limb; H40.9 Unspecified glaucoma; I10 Essential (primary) hypertension; M47.9 Spondylosis, unspecified; N40.0 Benign prostatic hyperplasia without lower urinary tract symptoms; Z83.3 Family history of diabetes mellitus